=== PATIENT | female | born 1975 | race American Indian/Alaskan Native ===

== ENCOUNTER 2018-11-10 19:05 | Inpatient (IN) | payer MEDICAID ==
[2018-11-10] MEDS ORDERED: ZOFRAN IV ONE (20:22)
[2018-11-10] MEDS ORDERED: NACL 0.9% 1000 ML 1,000 ML IV ONE (20:22)
[2018-11-10] MEDS ORDERED: MORPHINE IV ONE (20:22)
--- NOTE | 2018-11-10 21:03 | Emergency Department Report ---
ED N/V/D HPI - General Chief complaint: Chest Pain Stated complaint: CHEST BURNING Time Seen by Provider: 11/10/18 20:06 Source: EMS Mode of arrival: Stretcher Limitations: No Limitations - History of Present Illness Initial comments: 43 yo F with no PMH presents to ED with N/V/D x 36 hrs. Pt denies any sick contacts. Reports subjective fever and chills. Reports diffuse abdominal pain. States she is having chest pain from vomiting so much. Pt states she was experiencing lots of gas prior to onset of symptoms. MD complaint: nausea, vomiting, diarrhea, abdominal pain -: hour(s) (36) Description of Vomiting: food contents Description of Diarrhea: water Associated Abdominal Pain: Yes Location: diffuse Radiation: none Severity: moderate Quality: cramping, aching Consistency: constant Improves with: none Worsens with: eating Associated Symptoms: chest pain, fever/chills, nausea/vomiting - Related Data Home Medications Medication Instructions Recorded Confirmed Last Taken No Known Home Medications [No 11/11/18 11/11/18 Unknown Reported Home Medications] Allergies Allergy/AdvReac Type Severity Reaction Status Date / Time No Known Allergies Allergy Unverified 11/10/18 19:45 ED Review of Systems ROS: Stated complaint: CHEST BURNING Other details as noted in HPI Comment: All other systems reviewed and negative Constitutional: chills, fever Cardiovascular: chest pain Gastrointestinal: abdominal pain, nausea, vomiting, diarrhea Genitourinary: denies: dysuria, frequency, discharge ED Past Medical Hx - Past Medical History Previous Medical History?: No - Surgical History Past Surgical History?: No - Social History Smoking Status: Current Every Day Smoker Substance Use Type: None - Medications Home Medications: Home Medications Medication Instructions Recorded Confirmed Last Taken Type No Known Home Medications [No 11/11/18 11/11/18 Unknown History Reported Home Medications] ED Physical Exam - General Limitations: No Limitations General appearance: alert, in no apparent distress - Head Head exam: Present: atraumatic, normocephalic - Eye Eye exam: Present: normal appearance - ENT ENT exam: Present: mucous membranes moist - Neck Neck exam: Present: normal inspection - Respiratory Respiratory exam: Present: normal lung sounds bilaterally. Absent: respiratory distress - Cardiovascular Cardiovascular Exam: Present: regular rate, normal rhythm - GI/Abdominal GI/Abdominal exam: Present: soft, tenderness (mild diffuse tenderness). Absent: distended - Extremities Exam Extremities exam: Present: normal inspection - Neurological Exam Neurological exam: Present: alert, oriented X3 - Psychiatric Psychiatric exam: Present: normal affect, normal mood - Skin Skin exam: Present: warm, dry, intact, normal color ED Course Vital Signs 11/10/18 11/10/18 11/10/18 19:31 22:44 22:56 Temperature 98 F Pulse Rate 64 68 65 Respiratory 22 16 Rate Blood Pressure 177/107 175/102 Blood Pressure 159/99 [Left] O2 Sat by Pulse 100 99 Oximetry 11/10/18 11/10/18 23:15 23:35 Temperature Pulse Rate 64 64 Respiratory 14 16 Rate Blood Pressure 165/102 Blood Pressure 165/102 145/94 [Left] O2 Sat by Pulse 98 97 Oximetry - Reevaluation(s) Reevaluation #1: 11/10/18 22:34 Troponin elevated. Pt reports chest pain that feels like gas. Reports drug use, heroin. Most recent use was today. Denies cocaine use. ED Medical Decision Making - Lab Data Result diagrams: 11/10/18 21:04 11/10/18 21:03 - EKG Data -: EKG Interpreted by Ma EKG shows normal: sinus rhythm, QRS complexes Rate: normal - EKG Data Interpretation: other (left axis deviation; prolonged QT; T wave inversions II, III, aVF, V2-V4) - Radiology Data Radiology results: report reviewed, image reviewed - Medical Decision Making 43 yo F presents to ED w/ chest pain, abd pain, N/V/D. Pt found to have elevated troponin at 0.126. EKG shows no ST elevations but does show diffuse T wave inversions. D-dimer negative. Pt admits to drug use, including heroin. Denies cocaine use. Pt with elevated WBCs of 15, however, pt is afebrile. CT Abd Pelvis shows no acute findings except for small amt of free fluid in the pelvis. Pt given aspirin, lovenox for NSTEMI. Admit to hospitalist, Dr Peguero, for further management. - Differential Diagnosis gastroenteritis, bowel obstruction, PE Critical Care Time: Yes Critical care time in (mins) excluding proc time.: 35 Critical care attestation.: If time is entered above; I have spent that time in minutes in the direct care of this critically ill patient, excluding procedure time. Critical Care Time: 35 minutes ED Disposition Clinical Impression: NSTEMI (non-ST elevated myocardial infarction), Abdominal pain, Drug abuse, Hypokalemia Disposition: DC-09 OP ADMIT IP TO THIS HOSP Is pt being admited?: Yes Condition: Stable Time of Disposition: 02:16
[2018-11-10 21:17] LABS: Basophils % (Auto) 0.2 % (0.0-1.8); Hemoglobin 16.5 gm/dl (10.1-14.3); Lymphocytes # (Auto) 0.9 K/mm3 (1.2-5.4); Lymphocytes % (Auto) 5.9 % (13.4-35.0); Mean Corpuscular HGB Conc 34 % (30-34); Mean Corpuscular Volume 92 fl (79-97); Monocytes # (Auto) 0.8 K/mm3 (0.0-0.8); Platelet Count 286 K/mm3 (140-440); Red Blood Count 5.31 M/mm3 (3.65-5.03); Red Cell Distribution Width 13.1 % (13.2-15.2)
[2018-11-10 21:42] LABS: Alanine Aminotransferase 16 units/L (7-56); Albumin 4.6 g/dL (3.9-5); BUN/Creatinine Ratio 14; Blood Urea Nitrogen 11 mg/dL (7-17); Calcium 9.6 mg/dL (8.4-10.2); Hemolysis Index 28
[2018-11-10 22:30] LABS: HDL Cholesterol 58 mg/dL (40-59); LDL Cholesterol,Direct 115 mg/dL (50-130)
[2018-11-10] MEDS ORDERED: ASPIRIN PO ONE (22:37)
[2018-11-10] MEDS: NITROSTAT SL PRN ×2 (22:56→23:15)
[2018-11-10 23:29] LABS: INR 1.16 (0.87-1.13)
[2018-11-10 23:30] LABS: Partial Thromboplastin Time 27.6 Sec. (24.2-36.6)
--- NOTE | 2018-11-10 23:42 | XRay Report ---
Acute abdominal series. 11/10/2018. HISTORY: Nausea and vomiting. Cough. Shortness of breath. Chest one view: Heart size is normal. The lungs are clear. Two-view abdomen: Gas is scattered throughout the abdomen in a nonobstructive fashion. Negative for f ree air, constipation or suspicious calcification. Signer Name: Suresh West MD Signed: 11/10/2018 11:37 PM Workstation Name: [id number]
[2018-11-11] MEDS ORDERED: LOVENOX SUB-Q ONE ×2 (00:51→23:41)
--- NOTE | 2018-11-11 01:47 | Cat Scan Report ---
CT abdomen pelvis w con INDICATION: abd pain. TECHNIQUE: All CT scans at this location are performed using the following dose modulation technique: Automated exposure control. CONTRAST: Omnipaque 300, 100 cc IV injection. COMPARISON: None available. CT ABDOMEN: Evaluation the parenchymal organs demonstrates diffuse fatty infiltration the liver. Nega tive for pelvic mass, fluid or inflammation. The bowel is not dilated or thickened. A normal appendix is identified. CT PELVIS: Negative for pelvic mass or adenopathy. The uterus and ovaries demonstrate no abnormality. There is fluid deep within the pelvis along the lateral aspect of the cervix on the right. IMPRESSION: 1. Fluid deep within the pelvis along the right lateral aspect of the cervix of uncertain significanc e. This may lie within the vagina. Clinical correlation is recommended. 2. Fatty liver. 3. Negative for abnormality at the upper abdomen. Signer Name: Suresh West MD Signed: 11/11/2018 1:43 AM Workstation Name: [id number]
[2018-11-11] MEDS ORDERED: MORPHINE IV ONE (02:06)
[2018-11-11] MEDS ORDERED: ZOFRAN IV ONE (02:06)
[2018-11-11] MEDS ORDERED: K-DUR PO ONE (02:14)
[2018-11-11] MEDS ORDERED: SODIUM CHLORIDE FLUSH SYRINGE 10 ML IV PRN (02:19)
[2018-11-11] MEDS ORDERED: TYLENOL PO PRN (02:19)
[2018-11-11] MEDS ORDERED: REGLAN IV PRN (02:19)
[2018-11-11] MEDS ORDERED: ATIVAN IV PRN (02:44)
[2018-11-11] MEDS ORDERED: APRESOLINE IV PRN (02:52)
--- NOTE | 2018-11-11 02:57 | History and Physical Report ---
<PAMELA ROPER - Last Filed: 11/11/18 02:53> History of Present Illness Date of examination: 11/11/18 Date of admission: 11/11/2018 Chief complaint: Nausea, vomiting, diarrhea, abdominal pain and chest pain History of present illness: 43-year-old -[place] female with history of heroin abuse and tobacco abuse presents to [facility] ED with complaints of nausea, vomiting, diarrhea, abdominal pain and chest pain for the past 2-3 days. Patient states that on Saturday she started feeling bloated and passing excessive amount of gas. On Saturday she started experiencing nonradiating left-sided substernal chest pain, abdominal pain accompanied by nausea vomiting and diarrhea. She states that she is unable to keep anything down since Saturday. Admits: Heroin abuse, and chills Denies: Hemoptysis, melena, hematochezia, headache, or recent sick contact Past History Past Medical History: No medical history, other Past Surgical History: No surgical history Social history: smoking (smokes 1-2 black n milds per day), other (heroine addiction,). denies: alcohol abuse Family history: no significant family history Medications and Allergies Allergies Allergy/AdvReac Type Severity Reaction Status Date / Time No Known Allergies Allergy Unverified 11/10/18 19:45 Home Medications Medication Instructions Recorded Confirmed Last Taken Type No Known Home Medications [No 11/11/18 11/11/18 Unknown History Reported Home Medications] Active Meds: Active Medications Acetaminophen (Tylenol) 650 mg PO Q4H PRN PRN Reason: Pain MILD(1-3)/Fever >100.5/[place] Aspirin (Baby Aspirin) 81 mg PO QDAY [facility] Atorvastatin Calcium (Lipitor) 40 mg PO QHS [facility] Enoxaparin Sodium (Lovenox) 60 mg 1 mg/kg (60 mg) SUB-Q ONCE ONE Stop: 11/11/18 23:42 Last Admin: 11/11/18 01:21 Dose: 60 mg Documented by: Enoxaparin Sodium (Lovenox) 60 mg 1 mg/kg (60 mg) SUB-Q Q12HR [facility] Sodium Chloride (Nacl 0.9% 1000 Ml) 1,000 mls @ 125 mls/hr IV DIRECT [facility] Lorazepam (Ativan) 1 mg IV Q6H PRN PRN Reason: withdrawal, agitation Metoclopramide HCl (Reglan) 10 mg IV Q6H PRN PRN Reason: Nausea And Vomiting Morphine Sulfate (Morphine) 2 mg IV Q4H PRN PRN Reason: Pain, Moderate (4-6) Nicotine (Habitrol) 14 mg TD QDAY [facility] Nitroglycerin (Nitrostat) 0.4 mg SL .Q5MIN PRN PRN Reason: Chest Pain Last Admin: 11/10/18 23:15 Dose: 0.4 mg Documented by: Ondansetron HCl (Zofran) 4 mg IV Q6H PRN PRN Reason: Nausea And Vomiting Oxycodone/Acetaminophen (Percocet 5/325) 1 tab PO Q6H PRN PRN Reason: Pain, Moderate (4-6) Sodium Chloride (Sodium Chloride Flush Syringe 10 Ml) 10 ml IV BID [facility] Sodium Chloride (Sodium Chloride Flush Syringe 10 Ml) 10 ml IV PRN PRN PRN Reason: LINE FLUSH Review of Systems All systems: negative Constitutional: chills, weakness Cardiovascular: chest pain Gastrointestinal: abdominal pain, nausea, vomiting, diarrhea Exam - Physical Exam Narrative exam: Physical exam General appearance: Present: Mild discomfort, alert and oriented 3, middle-age adult -[place] female - EENT Eyes: Present: PERRL, EOM intact ENT: hearing intact, normal dentition - Neck Neck: Present: supple, normal ROM - Respiratory Respiratory effort: Non-labored Respiratory: CTA bilaterally - Cardiovascular Heart rate: 67 (bpm) Rhythm: SR, nonspecific T-wave abnormality Heart Sounds: Present: S1 & S2. Absent: rub, click - Extremities Extremities: no ischemia, pulses intact, abnormal () - Peripheral Assessment Peripheral Pulses: within normal limits - Abdominal General gastrointestinal: soft, non-tender, normal bowel sounds - Integumentary Integumentary: Present: warm, dry - Musculoskeletal Musculoskeletal: generalized weakness -Neurological Neurological: CN II-XII grossly intact - Psychiatric Psychiatric: cooperative - Constitutional Vitals: Temp Pulse Resp BP Pulse Ox 98 F 64 16 145/94 97 11/10/18 19:31 11/10/18 23:35 11/10/18 23:35 11/10/18 23:35 11/10/18 23:35 Results - Labs CBC & Chem 7: 11/10/18 21:04 11/10/18 21:03 Labs: Laboratory Last Values WBC 15.5 K/mm3 (4.5-11.0) H 11/10/18 21:04 RBC 5.31 M/mm3 (3.65-5.03) H 11/10/18 21:04 Hgb 16.5 gm/dl (10.1-14.3) H 11/10/18 21:04 Hct 49.0 % (30.3-42.9) H 11/10/18 21:04 MCV 92 fl (79-97) 11/10/18 21:04 MCH 31 pg (28-32) 11/10/18 21:04 MCHC 34 % (30-34) 11/10/18 21:04 RDW 13.1 % (13.2-15.2) L 11/10/18 21:04 Plt Count 286 K/mm3 (140-440) 11/10/18 21:04 Lymph % (Auto) 5.9 % (13.4-35.0) L 11/10/18 21:04 [place] % (Auto) 5.0 % (0.0-7.3) 11/10/18 21:04 Eos % (Auto) 0.0 % (0.0-4.3) 11/10/18 21:04 Baso % (Auto) 0.2 % (0.0-1.8) 11/10/18 21:04 Lymph # 0.9 K/mm3 (1.2-5.4) L 11/10/18 21:04 [place] # 0.8 K/mm3 (0.0-0.8) 11/10/18 21:04 Eos # 0.0 K/mm3 (0.0-0.4) 11/10/18 21:04 Baso # 0.0 K/mm3 (0.0-0.1) 11/10/18 21:04 Seg Neutrophils % 88.9 % (40.0-70.0) H 11/10/18 21:04 Seg Neutrophils # 13.8 K/mm3 (1.8-7.7) H 11/10/18 21:04 PT 14.5 Sec. (12.2-14.9) 11/10/18 22:46 INR 1.16 (0.87-1.13) H 11/10/18 22:46 APTT 27.6 Sec. (24.2-36.6) 11/10/18 22:46 184.44 ng/mlDDU (0-234) 11/10/18 22:46 Sodium 140 mmol/L (137-145) 11/10/18 21:03 Potassium 3.4 mmol/L (3.6-5.0) L 11/10/18 21:03 Chloride 97.6 mmol/L (98-107) L 11/10/18 21:03 Carbon Dioxide 24 mmol/L (22-30) 11/10/18 21:03 22 mmol/L 11/10/18 21:03 BUN 11 mg/dL (7-17) 11/10/18 21:03 0.8 mg/dL (0.7-1.2) 11/10/18 21:03 Estimated GFR > 60 ml/min 11/10/18 21:03 14 % 11/10/18 21:03 Glucose 97 mg/dL (65-100) 11/10/18 21:03 Calcium 9.6 mg/dL (8.4-10.2) 11/10/18 21:03 1.00 mg/dL (0.1-1.2) 11/10/18 21:03 AST 28 units/L (5-40) 11/10/18 21:03 ALT 16 units/L (7-56) 11/10/18 21:03 77 units/L (35-129) 11/10/18 21:03 0.126 ng/mL (0.00-0.029) H* 11/10/18 21:03 8.6 g/dL (6.3-8.2) H 11/10/18 21:03 4.6 g/dL (3.9-5) 11/10/18 21:03 1.2 % 11/10/18 21:03 Triglycerides 98 mg/dL (2-149) 11/10/18 21:03 Cholesterol 174 mg/dL (50-199) 11/10/18 21:03 115 mg/dL (50-130) 11/10/18 21:03 58 mg/dL (40-59) 11/10/18 21:03 3.00 % 11/10/18 21:03 11 units/L (13-60) L 11/10/18 21:03 HCG, Qual Negative (Negative) 11/10/18 20:55 - Imaging and Cardiology EKG: image reviewed (SR 67bpm, non specific T wave abnormalities) Imaging and Cardiology: Abdominal Serier XR: Two-view abdomen: Gas is scattered throughout the abdomen in a nonobstructive fashion. Negative forfree air, constipation or suspicious calcification. CT Abdomen Pelvis: CT ABDOMEN: Evaluation the parenchymal organs demonstrates diffuse fatty infiltration the liver. Negative for pelvic mass, fluid or inflammation. The bowel is not dilated or thickened. A normal appendix is identified. CT PELVIS: Negative for pelvic mass or adenopathy. The uterus and ovaries demonstrate no abnormality. There is fluid deep within the pelvis along the lateral aspect of the cervix on the right. IMPRESSION: 1. Fluid deep within the pelvis along the right lateral aspect of the cervix of uncertain significance. This may lie within the vagina. Clinical correlation is recommended. 2. Fatty liver. 3. Negative for abnormality at the upper abdomen. Assessment and Plan Assessment and plan: 43-year-old -[place] female with history of heroin abuse and tobacco abuse who presents to [facility] ED with complaints of nausea, vomiting, diarrhea, abdominal pain and chest pain for the past 2-3 days. Acute Chest Pain NSTEMI -Initiate chest pain protocol -Continuous telemetry monitoring -Continue supportive care -Pain mgmt -Echo pending -Troponin elevated x 1, will continue to trend -Start ASA and Statin -Start weight based Lovenox -Lipid panel pending -Cardiology Consulted Gastroenteritis -Supportive Care -Hydrate with IVF -CT Abd/Pelvis negative for abnormality at the upper abdomen Hypertension -Continue to monitor BP -Denies hx of HTN -IV antihypertensive when necessary Hypokalemia -mild -Repleted -Continue to monitor electrolytes, replete prn Tobacco abuse -Current every day smoker -Counseled for cessation -Nicotine patch when necessary Heroin abuse -Pt self reports -UDS pending -Ativan prn for withdrawals Leukocytosis -WBC 15.5 -Afebrile, no s/s of infection -hold off on starting abx for now and continue to monitor DVT PPX -on Lovenox Advance Directives: No VTE prophylaxis?: Chemical Plan of care discussed with patient/family: Yes <DAWN LIGHT - Last Filed: 11/11/18 05:09> History of Present Illness Date of admission: 11/11/18 02:19 Medications and Allergies Active Meds: Active Medications Acetaminophen (Tylenol) 650 mg PO Q4H PRN PRN Reason: Pain MILD(1-3)/Fever >100.5/[place] Aspirin (Baby Aspirin) 81 mg PO QDAY [facility] Atorvastatin Calcium (Lipitor) 40 mg PO QHS [facility] Enoxaparin Sodium (Lovenox) 60 mg SUB-Q Q12HR [facility] Hydralazine HCl (Apresoline) 10 mg IV Q4H PRN PRN Reason: Blood Pressure Sodium Chloride (Nacl 0.9% 1000 Ml) 1,000 mls @ 125 mls/hr IV DIRECT [facility] Lorazepam (Ativan) 0.5 mg IV Q6H PRN PRN Reason: withdrawal, agitation Last Admin: 11/11/18 03:25 Dose: 0.5 mg Documented by: Metoclopramide HCl (Reglan) 10 mg IV Q6H PRN PRN Reason: Nausea And Vomiting Morphine Sulfate (Morphine) 2 mg IV Q4H PRN PRN Reason: Pain, Moderate (4-6) Nicotine (Habitrol) 14 mg TD QDAY [facility] Nitroglycerin (Nitrostat) 0.4 mg SL .Q5MIN PRN PRN Reason: Chest Pain Last Admin: 11/10/18 23:15 Dose: 0.4 mg Documented by: Ondansetron HCl (Zofran) 4 mg IV Q6H PRN PRN Reason: Nausea And Vomiting Oxycodone/Acetaminophen (Percocet 5/325) 1 tab PO Q6H PRN PRN Reason: Pain, Moderate (4-6) Sodium Chloride (Sodium Chloride Flush Syringe 10 Ml) 10 ml IV BID [facility] Sodium Chloride (Sodium Chloride Flush Syringe 10 Ml) 10 ml IV PRN PRN PRN Reason: LINE FLUSH Exam - Constitutional Vitals: Temp Pulse Resp BP Pulse Ox 98 F 64 16 145/94 97 11/10/18 19:31 11/10/18 23:35 11/10/18 23:35 11/10/18 23:35 11/10/18 23:35 Results - Labs CBC & Chem 7: 11/10/18 21:04 11/10/18 21:03 Labs: Laboratory Last Values WBC 15.5 K/mm3 (4.5-11.0) H 11/10/18 21:04 RBC 5.31 M/mm3 (3.65-5.03) H 11/10/18 21:04 Hgb 16.5 gm/dl (10.1-14.3) H 11/10/18 21:04 Hct 49.0 % (30.3-42.9) H 11/10/18 21:04 MCV 92 fl (79-97) 11/10/18 21:04 MCH 31 pg (28-32) 11/10/18 21:04 MCHC 34 % (30-34) 11/10/18 21:04 RDW 13.1 % (13.2-15.2) L 11/10/18 21:04 Plt Count 286 K/mm3 (140-440) 11/10/18 21:04 Lymph % (Auto) 5.9 % (13.4-35.0) L 11/10/18 21:04 [place] % (Auto) 5.0 % (0.0-7.3) 11/10/18 21:04 Eos % (Auto) 0.0 % (0.0-4.3) 11/10/18 21:04 Baso % (Auto) 0.2 % (0.0-1.8) 11/10/18 21:04 Lymph # 0.9 K/mm3 (1.2-5.4) L 11/10/18 21:04 [place] # 0.8 K/mm3 (0.0-0.8) 11/10/18 21:04 Eos # 0.0 K/mm3 (0.0-0.4) 11/10/18 21:04 Baso # 0.0 K/mm3 (0.0-0.1) 11/10/18 21:04 Seg Neutrophils % 88.9 % (40.0-70.0) H 11/10/18 21:04 Seg Neutrophils # 13.8 K/mm3 (1.8-7.7) H 11/10/18 21:04 PT 14.5 Sec. (12.2-14.9) 11/10/18 22:46 INR 1.16 (0.87-1.13) H 11/10/18 22:46 APTT 27.6 Sec. (24.2-36.6) 11/10/18 22:46 184.44 ng/mlDDU (0-234) 11/10/18 22:46 Sodium 140 mmol/L (137-145) 11/10/18 21:03 Potassium 3.4 mmol/L (3.6-5.0) L 11/10/18 21:03 Chloride 97.6 mmol/L (98-107) L 11/10/18 21:03 Carbon Dioxide 24 mmol/L (22-30) 11/10/18 21:03 22 mmol/L 11/10/18 21:03 BUN 11 mg/dL (7-17) 11/10/18 21:03 0.8 mg/dL (0.7-1.2) 11/10/18 21:03 Estimated GFR > 60 ml/min 11/10/18 21:03 14 % 11/10/18 21:03 Glucose 97 mg/dL (65-100) 11/10/18 21:03 Calcium 9.6 mg/dL (8.4-10.2) 11/10/18 21:03 1.00 mg/dL (0.1-1.2) 11/10/18 21:03 AST 28 units/L (5-40) 11/10/18 21:03 ALT 16 units/L (7-56) 11/10/18 21:03 77 units/L (35-129) 11/10/18 21:03 0.126 ng/mL (0.00-0.029) H* 11/10/18 21:03 8.6 g/dL (6.3-8.2) H 11/10/18 21:03 4.6 g/dL (3.9-5) 11/10/18 21:03 1.2 % 11/10/18 21:03 Triglycerides 98 mg/dL (2-149) 11/10/18 21:03 Cholesterol 174 mg/dL (50-199) 11/10/18 21:03 115 mg/dL (50-130) 11/10/18 21:03 58 mg/dL (40-59) 11/10/18 21:03 3.00 % 11/10/18 21:03 11 units/L (13-60) L 11/10/18 21:03 HCG, Qual Negative (Negative) 11/10/18 20:55 Assessment and Plan Assessment and plan: 43-year-old woman with a history of recurrent abuse comes emergency room for nausea vomiting for 36 hours. Also complaining of chest and epigastric area which she describes as a dull pain, lasting less than 1 minute intermittently, intensity 4/10, no radiation, admits shortness of breath. start aspirin, full dose Lovenox, cardiology consult. No sign or symptoms of infection, check blood cultures. agree w/ rest of plan as stated above
[2018-11-11] MEDS: ATIVAN IV PRN (03:25)
[2018-11-11] MEDS: PERCOCET 5/325 PO PRN (09:47)
[2018-11-11] MEDS: ZOFRAN IV PRN ×2 (09:48→20:47)
[2018-11-11] MEDS: SODIUM CHLORIDE FLUSH SYRINGE 10 ML IV SCH ×2 (09:50→21:00)
[2018-11-11] MEDS ORDERED: LOVENOX SUB-Q SCH (10:00)
--- NOTE | 2018-11-11 11:25 | Consultation ---
History of Present Illness Consult date: 11/11/18 Requesting physician: PAMELA ROPER Consult reason: elevated troponin History of present illness: The pt is a 43-year-old female with history of heroin abuse (via nasal inhalation) and tobacco abuse. She is previously unknown to our practice. She presented with c/o nausea, vomiting, abdominal pain and chest pain. Patient states that on Saturday morning she used heroin. Several hours later, she began to experience gaseous distention, epigastric fullness and substernal chest pain. On Saturday morning, she developed nausea and vomiting. These symptoms persisted through the weekend and thus she presented to the ED yesterday evening for evaluation. Past History Past Medical History: No medical history Past Surgical History: No surgical history Social history: smoking (smokes 1-2 cigars per day), other (heroine inhalation ). denies: alcohol abuse Medications and Allergies Allergies Allergy/AdvReac Type Severity Reaction Status Date / Time No Known Allergies Allergy Unverified 11/10/18 19:45 Home Medications Medication Instructions Recorded Confirmed Last Taken Type No Known Home Medications [No 11/11/18 11/11/18 Unknown History Reported Home Medications] Active Meds: Active Medications Acetaminophen (Tylenol) 650 mg PO Q4H PRN PRN Reason: Pain MILD(1-3)/Fever >100.5/LARSON Aspirin (Baby Aspirin) 81 mg PO QDAY MARILEE Atorvastatin Calcium (Lipitor) 40 mg PO QHS MARILEE Enoxaparin Sodium (Lovenox) 60 mg SUB-Q Q12HR MARILEE Hydralazine HCl (Apresoline) 10 mg IV Q4H PRN PRN Reason: Blood Pressure Sodium Chloride (Nacl 0.9% 1000 Ml) 1,000 mls @ 125 mls/hr IV DIRECT MARILEE Lorazepam (Ativan) 0.5 mg IV Q6H PRN PRN Reason: withdrawal, agitation Last Admin: 11/11/18 03:25 Dose: 0.5 mg Documented by: Metoclopramide HCl (Reglan) 10 mg IV Q6H PRN PRN Reason: Nausea And Vomiting Morphine Sulfate (Morphine) 2 mg IV Q4H PRN PRN Reason: Pain, Moderate (4-6) Nicotine (Habitrol) 14 mg TD QDAY MARILEE Nitroglycerin (Nitrostat) 0.4 mg SL .Q5MIN PRN PRN Reason: Chest Pain Last Admin: 11/10/18 23:15 Dose: 0.4 mg Documented by: Ondansetron HCl (Zofran) 4 mg IV Q6H PRN PRN Reason: Nausea And Vomiting Last Admin: 11/11/18 09:48 Dose: 4 mg Documented by: Oxycodone/Acetaminophen (Percocet 5/325) 1 tab PO Q6H PRN PRN Reason: Pain, Moderate (4-6) Last Admin: 11/11/18 09:47 Dose: 1 tab Documented by: Sodium Chloride (Sodium Chloride Flush Syringe 10 Ml) 10 ml IV BID MARILEE Last Admin: 11/11/18 09:50 Dose: 10 ml Documented by: Sodium Chloride (Sodium Chloride Flush Syringe 10 Ml) 10 ml IV PRN PRN PRN Reason: LINE FLUSH Review of Systems Constitutional: no weight loss, no weight gain, no fever, no chills, no sweats Ears, nose, mouth and throat: no ear pain, no nose pain, no sinus pressure, no sinus pain Cardiovascular: chest pain, no orthopnea, no palpitations, no rapid/irregular heart beat, no edema, no syncope, no lightheadedness, no shortness of breath, no dyspnea on exertion, no high blood pressure Respiratory: no cough, no shortness of breath, no dyspnea on exertion, no congestion, no wheezing, no pain on inspiration Gastrointestinal: abdominal pain, nausea, vomiting, indigestion, no hematemesis, no coffee ground emesis, no melena, no hematochezia Genitourinary Female: no pelvic pain, no flank pain, no dysuria, no urinary frequency, no urgency Musculoskeletal: no neck stiffness, no neck pain, no shooting arm pain, no arm numbness/tingling, no low back pain, no shooting leg pain Integumentary: no rash, no pruritis, no redness, no sores, no wounds Neurological: no head injury, no paralysis, no weakness, no parathesias, no numbness, no tingling, no seizures, no syncope Psychiatric: no anxiety Endocrine: no cold intolerance, no heat intolerance Hematologic/Lymphatic: no easy bruising, no easy bleeding Allergic/Immunologic: no urticaria, no wheezing Physical Examination Vital Signs Temp Pulse Resp BP Pulse Ox 98 F 64 22 177/107 100 11/10/18 19:31 11/10/18 19:31 11/10/18 19:31 11/10/18 19:31 11/10/18 19:31 General appearance: no acute distress HEENT: Positive: PERRL, Normocephaly, Mucus Membranes Moist Neck: Positive: neck supple, trachea midline Cardiac: Positive: Reg Rate and Rhythm, S1/S2 Lungs: Positive: Decreased Breath Sounds Neuro: Positive: Grossly Intact Abdomen: Positive: Tender (epigastric tenderness) Skin: Negative: Rash Musculoskeletal: No Pain Extremities: Absent: edema Results 11/10/18 21:04 11/10/18 21:03 Cardiac Enzymes 11/10/18 Range/Units 21:03 AST 28 (5-40) units/L Coagulation 11/10/18 Range/Units 22:46 PT 14.5 (12.2-14.9) Sec. INR 1.16 H (0.87-1.13) APTT 27.6 (24.2-36.6) Sec. Lipids 11/10/18 Range/Units 21:03 Triglycerides 98 (2-149) mg/dL Cholesterol 174 (50-199) mg/dL HDL Cholesterol 58 (40-59) mg/dL Cholesterol/HDL Ratio 3.00 % CBC 11/10/18 Range/Units 21:04 WBC 15.5 H (4.5-11.0) K/mm3 RBC 5.31 H (3.65-5.03) M/mm3 Hgb 16.5 H (10.1-14.3) gm/dl Hct 49.0 H (30.3-42.9) % Plt Count 286 (140-440) K/mm3 Lymph # 0.9 L (1.2-5.4) K/mm3 [place] # 0.8 (0.0-0.8) K/mm3 Eos # 0.0 (0.0-0.4) K/mm3 Baso # 0.0 (0.0-0.1) K/mm3 Comprehensive Metabolic Panel 11/10/18 Range/Units 21:03 Sodium 140 (137-145) mmol/L Potassium 3.4 L (3.6-5.0) mmol/L Chloride 97.6 L (98-107) mmol/L Carbon Dioxide 24 (22-30) mmol/L BUN 11 (7-17) mg/dL Creatinine 0.8 (0.7-1.2) mg/dL Glucose 97 (65-100) mg/dL Calcium 9.6 (8.4-10.2) mg/dL AST 28 (5-40) units/L ALT 16 (7-56) units/L Alkaline Phosphatase 77 (35-129) units/L Total Protein 8.6 H (6.3-8.2) g/dL Albumin 4.6 (3.9-5) g/dL - Imaging and Cardiology Echo: pending EKG: report reviewed, image reviewed EKG interpretations - Telemetry EKG Rhythm: Sinus Rhythm - EKG Sinus rhythms and dysrhythmias: sinus rhythm Repolarization changes or abnormalities: ST or T wave suggestive of ischemia Assessment and Plan Pt presented with c/o chest pain, abdominal pain, n/v and is noted to have elevated troponins and markedly abnormal ECG. Her presentation appears c/w NSTEMI type I. Coronary angiography recommended for definitive diagnosis. Indications, potential risks and benefits of LHC reviewed with pt and she is agreeable to proceed in AM. NPO after MN. Optimize anti-ischemic regimen and BPs. Cont serial ECGs and trend cardiac enzymes. Await echo. Further recs to follow per hospital course. The patient has been seen in conjunction with Dr. Meneses who agrees with the assessment and plan of care. - Patient Problems (1) NSTEMI (non-ST elevated myocardial infarction) Current Visit: Yes Status: Acute (2) Chest pain Current Visit: Yes Status: Acute (3) Epigastric pain Current Visit: Yes Status: Acute (4) Nausea & vomiting Current Visit: Yes Status: Acute (5) Heroin abuse Current Visit: Yes Status: Chronic (6) Tobacco use Current Visit: Yes Status: Chronic (7) Hypokalemia Current Visit: Yes Status: Acute (8) HTN (hypertension) Current Visit: Yes Status: Acute
[2018-11-11] MEDS: HABITROL TD SCH (11:48)
[2018-11-11] MEDS: LOVENOX SUB-Q SCH ×2 (11:48→21:00)
[2018-11-11] MEDS: MORPHINE IV PRN ×3 (11:59→20:47)
[2018-11-11] MEDS ORDERED: NORVASC PO SCH (12:00)
[2018-11-11] MEDS ORDERED: NACL 0.9% 500 ML 500 ML IV SCH (12:00)
[2018-11-11] MEDS: LOPRESSOR PO SCH ×2 (13:40→21:00)
--- NOTE | 2018-11-11 13:56 | Progress Note ---
Assessment and Plan Assessment and plan: Patient is 43-year-old -[place]i woman with a history of heroin abuse (nasal inhalation) and tobacco abuse who presents to [facility] ED with complaints of nausea, vomiting, diarrhea, abdominal pain and chest pain for the past 2-3 days. Acute Chest Pain and abnormal EKG c/w NSTEMI -Initiate chest pain protocol -Continuous telemetry monitoring -Continue supportive care -Pain mgmt -Echo pending -Troponin elevated x 1, will continue to trend -Start ASA and Statin -Start weight based Lovenox -Lipid panel pending -Cardiology Consulted, input noted, [facility] tomorrow Gastroenteritis -Supportive Care -Hydrate with IVF -CT Abd/Pelvis negative for abnormality at the upper abdomen Hypertension -Continue to monitor BP -Denies hx of HTN -IV antihypertensive when necessary Hypokalemia -mild -Repleted -Continue to monitor electrolytes, replete prn Tobacco abuse -Current every day smoker -Counseled for cessation -Nicotine patch when necessary Heroin abuse -Pt self reports -UDS pending, uncollected, d/w Nursing -Ativan prn for withdrawals Leukocytosis -WBC 15.5 -Afebrile, no s/s of infection -hold off on starting abx for now and continue to monitor DVT PPX -on Lovenox History Interval history: Patient was seen and examined. Follow-up on current diagnosis AMI. No overnight events reported to me. Patient denies nausea/vomiting or severe headaches. Imaging, nursing note, chart, labs and old chart reviewed. Discussed with patient. Hospitalist Physical - Physical exam Narrative exam: Gen: WDWN, NAD, Awake, Alert, Orientated HEENT: NCAT, EOMI, PERRL, OP Clear Neck: supple, no adenopathy, no thyromegaly, no JVD CVS/Heart: RRR, normal S1S2, pulses present bilaterally Chest/Lungs: CTA B, Symmetrical chest expansion, good air entry bilaterally GI/Abdomen: soft, NTND, good bowel sounds, no guarding or rebound /Bladder: no suprapubic tenderness, no CVA or paraspinal tenderness Extermity/Skin: no c/c/e, no obvious rash MSK: FROM x 4 Neuro: CN 2-12 grossly intact, no new focal deficits Psych: calm - Constitutional Vitals: Temp Pulse Resp BP Pulse Ox 97.7 F 71 14 144/82 97 08/27/19 12:20 11/11/18 13:40 11/11/18 12:20 11/11/18 13:40 11/11/18 12:20 General appearance: Present: no acute distress Results - Labs CBC & Chem 7: 11/10/18 21:04 11/10/18 21:03 Labs: Laboratory Last Values WBC 15.5 K/mm3 (4.5-11.0) H 11/10/18 21:04 RBC 5.31 M/mm3 (3.65-5.03) H 11/10/18 21:04 Hgb 16.5 gm/dl (10.1-14.3) H 11/10/18 21:04 Hct 49.0 % (30.3-42.9) H 11/10/18 21:04 MCV 92 fl (79-97) 11/10/18 21:04 MCH 31 pg (28-32) 11/10/18 21:04 MCHC 34 % (30-34) 11/10/18 21:04 RDW 13.1 % (13.2-15.2) L 11/10/18 21:04 Plt Count 286 K/mm3 (140-440) 11/10/18 21:04 Lymph % (Auto) 5.9 % (13.4-35.0) L 11/10/18 21:04 [place] % (Auto) 5.0 % (0.0-7.3) 11/10/18 21:04 Eos % (Auto) 0.0 % (0.0-4.3) 11/10/18 21:04 Baso % (Auto) 0.2 % (0.0-1.8) 11/10/18 21:04 Lymph # 0.9 K/mm3 (1.2-5.4) L 11/10/18 21:04 [place] # 0.8 K/mm3 (0.0-0.8) 11/10/18 21:04 Eos # 0.0 K/mm3 (0.0-0.4) 11/10/18 21:04 Baso # 0.0 K/mm3 (0.0-0.1) 11/10/18 21:04 Seg Neutrophils % 88.9 % (40.0-70.0) H 11/10/18 21:04 Seg Neutrophils # 13.8 K/mm3 (1.8-7.7) H 11/10/18 21:04 PT 14.5 Sec. (12.2-14.9) 11/10/18 22:46 INR 1.16 (0.87-1.13) H 11/10/18 22:46 APTT 27.6 Sec. (24.2-36.6) 11/10/18 22:46 184.44 ng/mlDDU (0-234) 11/10/18 22:46 Sodium 140 mmol/L (137-145) 11/10/18 21:03 Potassium 3.4 mmol/L (3.6-5.0) L 11/10/18 21:03 Chloride 97.6 mmol/L (98-107) L 11/10/18 21:03 Carbon Dioxide 24 mmol/L (22-30) 11/10/18 21:03 22 mmol/L 11/10/18 21:03 BUN 11 mg/dL (7-17) 11/10/18 21:03 0.8 mg/dL (0.7-1.2) 11/10/18 21:03 Estimated GFR > 60 ml/min 11/10/18 21:03 14 % 11/10/18 21:03 Glucose 97 mg/dL (65-100) 11/10/18 21:03 Calcium 9.6 mg/dL (8.4-10.2) 11/10/18 21:03 1.00 mg/dL (0.1-1.2) 11/10/18 21:03 AST 28 units/L (5-40) 11/10/18 21:03 ALT 16 units/L (7-56) 11/10/18 21:03 77 units/L (35-129) 11/10/18 21:03 0.075 ng/mL (0.00-0.029) H 11/11/18 08:38 8.6 g/dL (6.3-8.2) H 11/10/18 21:03 4.6 g/dL (3.9-5) 11/10/18 21:03 1.2 % 11/10/18 21:03 Triglycerides 98 mg/dL (2-149) 11/10/18 21:03 Cholesterol 174 mg/dL (50-199) 11/10/18 21:03 115 mg/dL (50-130) 11/10/18 21:03 58 mg/dL (40-59) 11/10/18 21:03 3.00 % 11/10/18 21:03 11 units/L (13-60) L 11/10/18 21:03 HCG, Qual Negative (Negative) 11/10/18 20:55 Active Medications - Current Medications Current Medications: Generic Name Dose Route Start Last Admin Trade Name Freq PRN Reason Stop Dose Admin Acetaminophen 650 mg 11/11/18 02:19 Tylenol PO Q4H PRN Pain MILD(1-3)/Fever >100.5/LARSON Aspirin 325 mg 11/12/18 10:00 Aspirin PO QDAY [facility] Atorvastatin Calcium 40 mg 11/11/18 22:00 Lipitor PO QHS MARILEE Enoxaparin Sodium 60 mg 11/11/18 10:00 11/11/18 11:48 Lovenox SUB-Q 11/12/18 01:00 60 mg Q12HR MARILEE Administration Sodium Chloride 1,000 mls @ 125 mls/hr 11/11/18 03:00 Nacl 0.9% 1000 Ml IV DIRECT MARILEE Sodium Chloride 500 mls @ 50 mls/hr 11/11/18 12:00 Nacl 0.9% 500 Ml IV 11/11/18 21:59 DIRECT MARILEE Lorazepam 0.5 mg 11/11/18 02:58 11/11/18 03:25 Ativan IV 0.5 mg Q6H PRN Administration withdrawal, agitation Metoclopramide HCl 10 mg 11/11/18 02:19 11/11/18 12:36 Reglan IV 10 mg Q6H PRN Administration Nausea And Vomiting Metoprolol Tartrate 50 mg 11/11/18 12:00 11/11/18 13:40 Lopressor PO 50 mg BID MARILEE Administration Morphine Sulfate 2 mg 11/11/18 02:19 11/11/18 11:59 Morphine IV 2 mg Q4H PRN Administration Pain, Moderate (4-6) Nicotine 14 mg 11/11/18 10:00 11/11/18 11:48 Habitrol TD 14 mg QDAY MARILEE Administration Nitroglycerin 0.4 mg 11/10/18 22:39 11/10/18 23:15 Nitrostat SL 0.4 mg .Q5MIN PRN Administration Chest Pain Ondansetron HCl 4 mg 11/11/18 02:19 11/11/18 09:48 Zofran IV 4 mg Q6H PRN Administration Nausea And Vomiting Oxycodone/Acetaminophen 1 tab 11/11/18 02:19 11/11/18 09:47 Percocet 5/325 PO 1 tab Q6H PRN Administration Pain, Moderate (4-6) Sodium Chloride 10 ml 11/11/18 10:00 11/11/18 09:50 Sodium Chloride Flush Syringe 10 Ml IV 10 ml BID MARILEE Administration Sodium Chloride 10 ml 11/11/18 02:19 Sodium Chloride Flush Syringe 10 Ml IV PRN PRN LINE FLUSH
[2018-11-11] MEDS: NACL 0.9% 1000 ML 1,000 ML IV SCH (14:59)
[2018-11-11 19:41] LABS: Bilirubin,Urine NEG (Negative); Blood,Urine NEG (Negative); Color,Urine Yellow (Yellow); Mucus,Urine 1+ /HPF
[2018-11-11 19:47] LABS: Amphetamine Screen,Urine PRESUMPTIVE NEGATIVE; Cannabinoid Screen,Urine PRESUMPTIVE NEGATIVE; Methadone Screen,Urine PRESUMPTIVE NEGATIVE
[2018-11-11 20:01] LABS: Benzodiazepines Screen,Urine PRESUMPTIVE POSITIVE; Cocaine Screen,Urine PRESUMPTIVE POSITIVE; Opiate Screen,Urine PRESUMPTIVE POSITIVE
[2018-11-12] MEDS: MORPHINE IV PRN ×3 (00:13→16:32)
[2018-11-12] MEDS ORDERED: BENADRYL PO PRN (00:54)
[2018-11-12] MEDS ORDERED: BENADRYL IV ONE (01:03)
[2018-11-12] MEDS: ATIVAN IV PRN (02:04)
[2018-11-12 06:27] LABS: Basophils % (Auto) 0.2 % (0.0-1.8); Hematocrit 47.8 % (30.3-42.9); Hemoglobin 16.2 gm/dl (10.1-14.3); Lymphocytes # (Auto) 2.6 K/mm3 (1.2-5.4); Lymphocytes % (Auto) 14.9 % (13.4-35.0); Mean Corpuscular HGB Conc 34 % (30-34); Mean Corpuscular Volume 91 fl (79-97); Monocytes # (Auto) 1.3 K/mm3 (0.0-0.8); Monocytes % (Auto) 7.1 % (0.0-7.3); Platelet Count 284 K/mm3 (140-440); Red Blood Count 5.24 M/mm3 (3.65-5.03)
[2018-11-12 06:34] LABS: INR 1.2 (0.87-1.13)
[2018-11-12 06:40] LABS: Creatine Kinase MB 2.5 ng/mL (0.0-4.0)
[2018-11-12 06:41] LABS: BUN/Creatinine Ratio 18; Blood Urea Nitrogen 14 mg/dL (7-17); Calcium 8.9 mg/dL (8.4-10.2); Hemolysis Index 5
[2018-11-12] MEDS: NACL 0.9% 1000 ML 1,000 ML IV SCH (07:05)
[2018-11-12] MEDS ORDERED: NACL 0.9% 500 ML 500 ML ONE (07:59)
[2018-11-12] MEDS ORDERED: ZOFRAN ONE ×2 (08:00→08:37)
[2018-11-12] MEDS: ZOFRAN IV PRN ×2 (08:04→16:39)
[2018-11-12] MEDS ORDERED: MORPHINE ONE (08:16)
[2018-11-12] MEDS ORDERED: HEPARIN 10,000 UNITS/10 ML ONE (08:25)
[2018-11-12] MEDS ORDERED: HEPARIN/NS 5000 UNIT/500ML(CATH LAB) 1,000 ML IR ONE (08:25)
[2018-11-12] MEDS ORDERED: CALAN ONE (08:26)
[2018-11-12] MEDS ORDERED: VERSED ONE (08:26)
[2018-11-12] MEDS ORDERED: NITROGLYCERIN SYRINGE 3 ML ONE (08:27)
[2018-11-12] MEDS ORDERED: XYLOCAINE 2% INFILTRATI ONE (08:27)
[2018-11-12] MEDS: SUBLIMAZE ONE ×2 (08:49→09:09)
[2018-11-12] MEDS ORDERED: ZOFRAN IV ONE (09:00)
[2018-11-12] MEDS ORDERED: K-DUR PO ONE ×2 (09:16→09:19)
--- NOTE | 2018-11-12 09:27 | Cardiac Catherization Report ---
LEFT HEART CATHETERIZATION CLINICAL INFORMATION: This is a 43-year-old -[place] female with history of heroin use, smoker, presents with chest pain, shortness of breath, was found to have abnormal troponin suggested [id number] CO with moderate LV dysfunction, EF 35-40%, here for left heart catheterization. Left heart catheterization was done under moderate sedation, 1 mg Versed, 50 mcg of fentanyl. Start sedation time 8:49 a.m., finished at 9:14 a.m., which is 25 minutes of supervised sedation. Procedure was performed by the right radial artery, sterile technique, local anesthesia, 6-Anguillan radial sheath inserted. Left system engaged with JL3.5 catheter. Left main is large and patent, bifurcates into large LAD that is patent. Diagonal 1 is a [id number] caliber vessel, patent. Circumflex is a large caliber vessel, which is patent, goes into large OM1 with upper and lower branches patent. RCA engaged with JR4 catheter, is a large dominant vessel, is patent. PDA and PLV are agoyu-fq-iaoevi caliber and patent. LV gram done in TONGAN and HARVEY shows mild to moderate LV dysfunction, EF 40%. LVEDP at 26 mmHg. LV was 168 mmHg. Aortic is 167/108 mmHg. No significant gradient across the aortic valve on pullback. A 5-Anguillan catheters all taken over guidewire, 6-Anguillan radial sheath was discontinued. Radial band applied. No hematoma, no bleeding. SUMMARY: Normal coronaries, left main, LAD, diagonal 1, circumflex OM1 and RCA, mild to moderate LV dysfunction with elevated left end-diastolic pressure, nonischemic cardiomyopathy. Treat medically. JOB# [id number] LEXY/ZAINAB
--- NOTE | 2018-11-12 09:27 | Progress Note ---
Assessment and Plan nstemi type 2 non ischemic cardiomyopathy acute systolic and diasatolic dsyfunction nausea and vomiting smoker history of recent heorin use htn hypokalemia rec: start clear liquids, replace k and check am labs, lopressor and add losartan for lv dsyfunction and possible discharge in am and post cath care Subjective Date of service: 11/12/18 Principal diagnosis: nstemi Interval history: nausea and chest pain better Objective Vital Signs Temp Pulse Resp BP BP Pulse Ox 11/12/18 06:00 60 11/12/18 03:54 98.9 F 64 16 158/108 98 11/12/18 00:51 63 11/11/18 23:44 99.2 F 63 16 159/108 98 11/11/18 23:05 65 11/11/18 21:00 171/108 11/11/18 20:19 98.8 F 63 18 171/108 98 11/11/18 18:44 61 18 158/95 96 11/11/18 15:55 99.7 F H 60 14 149/109 98 11/11/18 15:00 18 11/11/18 13:40 71 144/82 11/11/18 12:30 73 11/11/18 12:20 97.7 F 58 L 14 140/82 97 - Physical Examination General: No Apparent Distress HEENT: Positive: PERRL, Normocephaly, Mucus Membranes Moist Neck: Positive: neck supple, trachea midline Cardiac: Positive: Reg Rate and Rhythm Lungs: Positive: clear to auscultation Neuro: Positive: Grossly Intact Abdomen: Positive: Tender (epigastric tenderness) Skin: Negative: Rash Musculoskeletal: No Pain Extremities: Absent: edema - Labs and Meds Cardiac Enzymes 11/12/18 Range/Units 05:47 CK-MB (CK-2) 2.5 (0.0-4.0) ng/mL Coagulation 11/12/18 Range/Units 05:47 PT 14.9 (12.2-14.9) Sec. INR 1.20 H (0.87-1.13) CBC 11/12/18 Range/Units 05:47 WBC 17.8 H (4.5-11.0) K/mm3 RBC 5.24 H (3.65-5.03) M/mm3 Hgb 16.2 H (10.1-14.3) gm/dl Hct 47.8 H (30.3-42.9) % Plt Count 284 (140-440) K/mm3 Lymph # 2.6 (1.2-5.4) K/mm3 [place] # 1.3 H (0.0-0.8) K/mm3 Eos # 0.0 (0.0-0.4) K/mm3 Baso # 0.0 (0.0-0.1) K/mm3 Comprehensive Metabolic Panel 11/12/18 Range/Units 05:47 Sodium 136 L (137-145) mmol/L Potassium 3.2 L (3.6-5.0) mmol/L Chloride 97.3 L (98-107) mmol/L Carbon Dioxide 25 (22-30) mmol/L BUN 14 (7-17) mg/dL Creatinine 0.8 (0.7-1.2) mg/dL Glucose 85 (65-100) mg/dL Calcium 8.9 (8.4-10.2) mg/dL - Imaging and Cardiology EKG: report reviewed, image reviewed Echo: report reviewed (moderate lv dsyfunction ef 35-40%) Cardiac cath: report reviewed (normal coronaries and ef 40%) - Telemetry EKG Rhythm: Sinus Rhythm - EKG Sinus rhythms and dysrhythmias: sinus rhythm Repolarization changes or abnormalities: ST or T wave suggestive of ischemia
[2018-11-12] MEDS ORDERED: KCL 10MEQ/100ML 10 MEQ/100 ML BAG IV SCH (09:30)
[2018-11-12] MEDS ORDERED: BABY ASPIRIN PO SCH (10:00)
[2018-11-12] MEDS ORDERED: ASPIRIN PO SCH (10:00)
[2018-11-12] MEDS: PERCOCET 5/325 PO PRN ×2 (11:19→22:17)
[2018-11-12] MEDS: LOPRESSOR PO SCH ×2 (11:20→22:16)
[2018-11-12] MEDS: SODIUM CHLORIDE FLUSH SYRINGE 10 ML IV SCH ×2 (11:21→22:18)
[2018-11-12] MEDS: COZAAR PO SCH (11:21)
[2018-11-12] MEDS: HABITROL TD SCH (11:21)
--- NOTE | 2018-11-12 18:51 | Progress Note ---
Assessment and Plan Assessment and plan: Patient is 43-year-old -[place]ish woman with a history of chronic abd pains after Fibroids surgery leading to percocet addition then current heroin abuse (nasal inhalation) and tobacco abuse who presents to [facility] ED with complaints of nausea, vomiting, diarrhea, abdominal pain and chest pain for the past 2-3 days. * pCXR/Abd XRay Chest one view: Heart size is normal. The lungs are clear. Two- view abdomen: Gas is scattered throughout the abdomen in a nonobstructive fashion. Negative for free air, constipation or suspicious calcification. * CT abd/pelvis with contrast IMPRESSION: 1. Fluid deep within the pelvis along the right lateral aspect of the cervix of uncertain significance. This may lie within the vagina. Clinical correlation is recommended. 2. Fatty liver. 3. Negative for abnormality at the upper abdomen. Acute Chest Pain and abnormal EKG c/w NSTEMI type 2 -Initiate chest pain protocol -Continuous telemetry monitoring -Continue supportive care -Pain mgmt -Echo reviewed -Troponin elevated -Start ASA and Statin -treated with weight based Lovenox -Lipid panel reviewed -Cardiology Consulted, input noted, LHC showed normal coronaries Non-ischemic cardiomyopathy -medical management Acute systolic and diasatolic dysfunction, poa -medical management Dyslipidemia, new onset LDL 115 -start statin Acute Gastroenteritis most likely illegal drug related -Supportive Care -Hydrate with IVF -CT Abd/Pelvis reviewed Hypertension, uncontrolled -stop NSS ivf -Continue to monitor BP -Denies hx of HTN -IV antihypertensive when necessary Hypokalemia -mild -Repleted -Continue to monitor electrolytes, replete prn Tobacco abuse -Current every day smoker -Counseled for cessation -Nicotine patch when necessary Polysubstance abuse, Heroin abuse -Counseling done -UDS collected, +opiates, BZD and cocaine -Ativan prn for withdrawals Leukocytosis, worsening, -WBC 15.5==>17.8, pelvic/cervical fluid, start empiric abx for PID, IV ancef and oral doxycycline -Consulted ID -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 Follow-up on current diagnosis AMI type 2, n/v resolving. No overnight events reported to me. Patient denies nausea/vomiting or severe headaches. Imaging, nursing note, chart, labs and old chart reviewed. Discussed with patient. Hospitalist Physical - Physical exam Narrative exam: Gen: WDWN, NAD, Awake, Alert, Orientated x 3 HEENT: NCAT, EOMI, PERRL, OP Clear Neck: supple, no adenopathy, no thyromegaly, no JVD CVS/Heart: RRR, normal S1S2, pulses present bilaterally Chest/Lungs: CTA B, Symmetrical chest expansion, good air entry bilaterally GI/Abdomen: soft, nondistended, diffuse tender, good bowel sounds, no guarding or rebound /Bladder: + suprapubic tenderness, no CVA or paraspinal tenderness Extermity/Skin: no c/c/e, no obvious rash MSK: FROM x 4 Neuro: CN 2-12 grossly intact, no new focal deficits Psych: calm - Constitutional Vitals: Temp Pulse Resp BP Pulse Ox 98.9 F 60 18 153/99 98 11/12/18 03:54 11/12/18 16:00 11/12/18 16:00 11/12/18 16:00 11/12/18 16:00 General appearance: Present: no acute distress Results - Labs CBC & Chem 7: 11/12/18 05:47 11/12/18 05:47 Labs: Laboratory Last Values WBC 17.8 K/mm3 (4.5-11.0) H 11/12/18 05:47 RBC 5.24 M/mm3 (3.65-5.03) H 11/12/18 05:47 Hgb 16.2 gm/dl (10.1-14.3) H 11/12/18 05:47 Hct 47.8 % (30.3-42.9) H 11/12/18 05:47 MCV 91 fl (79-97) 11/12/18 05:47 MCH 31 pg (28-32) 11/12/18 05:47 MCHC 34 % (30-34) 11/12/18 05:47 RDW 13.0 % (13.2-15.2) L 11/12/18 05:47 Plt Count 284 K/mm3 (140-440) 11/12/18 05:47 Lymph % (Auto) 14.9 % (13.4-35.0) 11/12/18 05:47 [place] % (Auto) 7.1 % (0.0-7.3) 11/12/18 05:47 Eos % (Auto) 0.0 % (0.0-4.3) 11/12/18 05:47 Baso % (Auto) 0.2 % (0.0-1.8) 11/12/18 05:47 Lymph # 2.6 K/mm3 (1.2-5.4) 11/12/18 05:47 [place] # 1.3 K/mm3 (0.0-0.8) H 11/12/18 05:47 Eos # 0.0 K/mm3 (0.0-0.4) 11/12/18 05:47 Baso # 0.0 K/mm3 (0.0-0.1) 11/12/18 05:47 Seg Neutrophils % 77.8 % (40.0-70.0) H 11/12/18 05:47 Seg Neutrophils # 13.8 K/mm3 (1.8-7.7) H 11/12/18 05:47 PT 14.9 Sec. (12.2-14.9) 11/12/18 05:47 INR 1.20 (0.87-1.13) H 11/12/18 05:47 APTT 27.6 Sec. (24.2-36.6) 11/10/18 22:46 184.44 ng/mlDDU (0-234) 11/10/18 22:46 Sodium 136 mmol/L (137-145) L 11/12/18 05:47 Potassium 3.2 mmol/L (3.6-5.0) L 11/12/18 05:47 Chloride 97.3 mmol/L (98-107) L 11/12/18 05:47 Carbon Dioxide 25 mmol/L (22-30) 11/12/18 05:47 17 mmol/L 11/12/18 05:47 BUN 14 mg/dL (7-17) 11/12/18 05:47 0.8 mg/dL (0.7-1.2) 11/12/18 05:47 Estimated GFR > 60 ml/min 11/12/18 05:47 18 % 11/12/18 05:47 Glucose 85 mg/dL (65-100) 11/12/18 05:47 Calcium 8.9 mg/dL (8.4-10.2) 11/12/18 05:47 1.00 mg/dL (0.1-1.2) 11/10/18 21:03 AST 28 units/L (5-40) 11/10/18 21:03 ALT 16 units/L (7-56) 11/10/18 21:03 77 units/L (35-129) 11/10/18 21:03 74 units/L (30-135) 11/12/18 05:47 CK-MB (CK-2) 2.5 ng/mL (0.0-4.0) 11/12/18 05:47 CK-MB (CK-2) Rel Index 3.3 (0-4) 11/12/18 05:47 0.017 ng/mL (0.00-0.029) 11/12/18 05:47 8.6 g/dL (6.3-8.2) H 11/10/18 21:03 4.6 g/dL (3.9-5) 11/10/18 21:03 1.2 % 11/10/18 21:03 Triglycerides 98 mg/dL (2-149) 11/10/18 21:03 Cholesterol 174 mg/dL (50-199) 11/10/18 21:03 115 mg/dL (50-130) 11/10/18 21:03 58 mg/dL (40-59) 11/10/18 21:03 3.00 % 11/10/18 21:03 11 units/L (13-60) L 11/10/18 21:03 HCG, Qual Negative (Negative) 11/10/18 20:55 Yellow (Yellow) 11/10/18 18:45 Clear (Clear) 11/10/18 18:45 6.0 (5.0-7.0) 11/10/18 18:45 Ur Specific [place] 1.026 (1.003-1.030) 11/10/18 18:45 30 mg/dl mg/dL (Negative) 11/10/18 18:45 Neg mg/dL (Negative) 11/10/18 18:45 20 mg/dL (Negative) 11/10/18 18:45 Neg (Negative) 11/10/18 18:45 Neg (Negative) 11/10/18 18:45 Neg (Negative) 11/10/18 18:45 2.0 mg/dL (<2.0) 11/10/18 18:45 Ur Leukocyte Esterase Neg (Negative) 11/10/18 18:45 1.0 /HPF (0.0-6.0) 11/10/18 18:45 4.0 /HPF (0.0-6.0) 11/10/18 18:45 U Epithel Cells (Auto) 4.0 /HPF (0-13.0) 11/10/18 18:45 1+ /HPF 11/10/18 18:45 Presumptive positive 11/10/18 18:45 Presumptive negative 11/10/18 18:45 Ur Barbiturates Screen Presumptive negative 11/10/18 18:45 Ur Phencyclidine Scrn Presumptive negative 11/10/18 18:45 Ur Amphetamines Screen Presumptive negative 11/10/18 18:45 U Benzodiazepines Scrn Presumptive positive 11/10/18 18:45 Presumptive positive 11/10/18 18:45 U Marijuana (THC) Screen Presumptive negative 11/10/18 18:45 Disclamer 11/10/18 18:45 Active Medications - Current Medications Current Medications: Generic Name Dose Route Start Last Admin Trade Name Freq PRN Reason Stop Dose Admin Acetaminophen 650 mg 11/11/18 02:19 Tylenol PO Q4H PRN Pain MILD(1-3)/Fever >100.5/LARSON Aspirin 325 mg 11/12/18 10:00 11/12/18 11:20 Aspirin PO 325 mg QDAY MARILEE Administration Atorvastatin Calcium 40 mg 11/11/18 22:00 11/11/18 21:05 Lipitor PO 40 mg QHS MARILEE Administration Diphenhydramine HCl 25 mg 11/12/18 00:54 Benadryl PO QHS PRN Sleep Sodium Chloride 1,000 mls @ 125 mls/hr 11/11/18 03:00 11/12/18 07:05 Nacl 0.9% 1000 Ml IV 125 mls/hr DIRECT MARILEE Administration Lorazepam 0.5 mg 11/11/18 02:58 11/12/18 02:04 Ativan IV 0.5 mg Q6H PRN Administration withdrawal, agitation Losartan Potassium 50 mg 11/12/18 10:00 11/12/18 11:21 Cozaar PO 50 mg QDAY MARILEE Administration Metoclopramide HCl 10 mg 11/11/18 02:19 11/11/18 12:36 Reglan IV 10 mg Q6H PRN Administration Nausea And Vomiting Metoprolol Tartrate 50 mg 11/11/18 12:00 11/12/18 11:20 Lopressor PO 50 mg BID MARILEE Administration Morphine Sulfate 2 mg 11/11/18 02:19 11/12/18 16:32 Morphine IV 2 mg Q4H PRN Administration Pain, Moderate (4-6) Nicotine 14 mg 11/11/18 10:00 11/12/18 11:21 Habitrol TD 14 mg QDAY MARILEE Administration Ondansetron HCl 4 mg 11/11/18 02:19 11/12/18 16:39 Zofran IV 4 mg Q6H PRN Administration Nausea And Vomiting Oxycodone/Acetaminophen 1 tab 11/11/18 02:19 11/12/18 11:19 Percocet 5/325 PO 1 tab Q6H PRN Administration Pain, Moderate (4-6) Sodium Chloride 10 ml 11/11/18 10:00 11/12/18 11:21 Sodium Chloride Flush Syringe 10 Ml IV 10 ml BID MARILEE Administration Sodium Chloride 10 ml 11/11/18 02:19 Sodium Chloride Flush Syringe 10 Ml IV PRN PRN LINE FLUSH
[2018-11-12] MEDS: DILAUDID PO PRN (20:07)
[2018-11-12] MEDS ORDERED: XANAX PO SCH (22:00)
[2018-11-12] MEDS: VIBRAMYCIN PO SCH (22:16)
[2018-11-12] MEDS: ANCEF/NS 1 GM/50 ML 1 GM/50 ML BAG IV SCH (22:17)
[2018-11-13] MEDS ORDERED: APRESOLINE IV PRN (00:48)
[2018-11-13] MEDS: DILAUDID PO PRN ×2 (01:10→10:32)
[2018-11-13] MEDS: ANCEF/NS 1 GM/50 ML 1 GM/50 ML BAG IV SCH ×2 (05:55→14:46)
[2018-11-13] MEDS: PERCOCET 5/325 PO PRN ×2 (05:56→12:17)
[2018-11-13 06:30] LABS: Hematocrit 51.3 % (30.3-42.9); Hemoglobin 17.2 gm/dl (10.1-14.3); Mean Corpuscular HGB Conc 34 % (30-34); Mean Corpuscular Volume 92 fl (79-97); Platelet Count 306 K/mm3 (140-440); Red Blood Count 5.59 M/mm3 (3.65-5.03); Red Cell Distribution Width 12.9 % (13.2-15.2)
[2018-11-13 06:51] LABS: BUN/Creatinine Ratio 14; Blood Urea Nitrogen 11 mg/dL (7-17); Calcium 8.9 mg/dL (8.4-10.2); Hemolysis Index 21
[2018-11-13] MEDS: ZOFRAN IV PRN (06:51)
--- NOTE | 2018-11-13 07:29 | Progress Note ---
Assessment and Plan Assessment and plan: Patient is 43-year-old -[place] woman with a history of chronic abd pains after remote history of Fibroids leading to percocet addiction then current heroin abuse (via nasal inhalation) and tobacco dependency who presents to [facility] ED with complaints of nausea, vomiting, diarrhea, abdominal pains and chest pains for the past 2-3 days. She was found to have elevated troponins with normal renal function. UDS on admission was delayed due to non-adherence, so I had to call the nurse to obtain which was positive for opiates, Benzo and cocaine * pCXR/Abd XRay Chest one view: Heart size is normal. The lungs are clear. Two- view abdomen: Gas is scattered throughout the abdomen in a nonobstructive fashion. Negative for free air, constipation or suspicious calcification. * CT abd/pelvis with contrast IMPRESSION: 1. Fluid deep within the pelvis along the right lateral aspect of the cervix of uncertain significance. This may lie within the vagina. Clinical correlation is recommended. 2. Fatty liver. 3. Negative for abnormality at the upper abdomen. * 11/12/18 s/p LHC with normal Coronaries Leukocytosis, worsening with abdominal pains -WBC 15.5==>17.8, pelvic/cervical fluid, start empiric abx for PID, IV ancef and oral doxycycline unlikely PID, will discharge most likely reactive leukocytosis -Consulted ID -Consulted clinical microbiologist -ordered transvaginal us -Afebrile, no s/s of infection, -cxr negative, ua negative and blood ctx negative so far -held off on starting abx until WBC started to increase yesterday -the abdominal pains is difficult to evaluate as patient has chronic abd pains Acute Chest Pain and abnormal EKG c/w NSTEMI type 2 -Initiate chest pain protocol -Continuous telemetry monitoring -Continue supportive care -Pain mgmt -Echo reviewed -Troponin elevated -Start ASA and Statin -treated with weight based Lovenox -Lipid panel reviewed -Cardiology Consulted, input noted, LHC showed normal coronaries Non-ischemic cardiomyopathy -medical management Acute systolic and diasatolic dysfunction, poa -medical management Dyslipidemia, new onset LDL 115 -started statin Acute Gastroenteritis -Supportive Care -Hydrate with IVF -CT Abd/Pelvis reviewed Hypertension, uncontrolled -stop NSS ivf -Continue to monitor BP -Denies hx of HTN -IV antihypertensive when necessary Hypokalemia -mild -Replete -Continue to monitor electrolytes, replete prn Tobacco abuse -Current every day smoker -Counseled for cessation -Nicotine patch when necessary Polysubstance abuse, Heroin abuse -Counseling done -UDS collected, +opiates, BZD and cocaine -Ativan prn for withdrawals -not in active withdrawals DVT PPX -on Lovenox Disposition: continue inpatient care, evaluate the worsening leukocytosis, abnormal fluid around cervix, ?PID==>unlikely, no vaginal discharge, transvaginal u/s shows 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 Follow-up on current diagnosis AMI type 2, n/v resolving. No overnight events reported to me. Patient denies nausea/vomiting or severe headaches. Imaging, nursing note, chart, labs and old chart reviewed. Discussed with patient. Hospitalist Physical - Physical exam Narrative exam: Gen: WDWN, NAD, Awake, Alert, Orientated x 3 HEENT: NCAT, EOMI, PERRL, OP Clear Neck: supple, no adenopathy, no thyromegaly, no JVD CVS/Heart: RRR, normal S1S2, pulses present bilaterally Chest/Lungs: CTA B, Symmetrical chest expansion, good air entry bilaterally GI/Abdomen: soft, nondistended, diffuse tender, good bowel sounds, no guarding or rebound /Bladder: + suprapubic tenderness, no CVA or paraspinal tenderness Extermity/Skin: no c/c/e, no obvious rash MSK: FROM x 4 Neuro: CN 2-12 grossly intact, no new focal deficits Psych: calm - Constitutional Vitals: Temp Pulse Resp BP Pulse Ox 98.7 F 64 20 164/108 98 11/13/18 03:10 11/13/18 06:00 11/13/18 05:56 11/13/18 03:10 11/13/18 03:10 General appearance: Present: no acute distress Results - Labs CBC & Chem 7: 11/13/18 05:49 11/13/18 05:49 Labs: Laboratory Last Values WBC 16.7 K/mm3 (4.5-11.0) H 11/13/18 05:49 RBC 5.59 M/mm3 (3.65-5.03) H 11/13/18 05:49 Hgb 17.2 gm/dl (10.1-14.3) H 11/13/18 05:49 Hct 51.3 % (30.3-42.9) H 11/13/18 05:49 MCV 92 fl (79-97) 11/13/18 05:49 MCH 31 pg (28-32) 11/13/18 05:49 MCHC 34 % (30-34) 11/13/18 05:49 RDW 12.9 % (13.2-15.2) L 11/13/18 05:49 Plt Count 306 K/mm3 (140-440) 11/13/18 05:49 Lymph % (Auto) 14.9 % (13.4-35.0) 11/12/18 05:47 [place] % (Auto) 7.1 % (0.0-7.3) 11/12/18 05:47 Eos % (Auto) 0.0 % (0.0-4.3) 11/12/18 05:47 Baso % (Auto) 0.2 % (0.0-1.8) 11/12/18 05:47 Lymph # 2.6 K/mm3 (1.2-5.4) 11/12/18 05:47 [place] # 1.3 K/mm3 (0.0-0.8) H 11/12/18 05:47 Eos # 0.0 K/mm3 (0.0-0.4) 11/12/18 05:47 Baso # 0.0 K/mm3 (0.0-0.1) 11/12/18 05:47 Seg Neutrophils % 77.8 % (40.0-70.0) H 11/12/18 05:47 Seg Neutrophils # 13.8 K/mm3 (1.8-7.7) H 11/12/18 05:47 PT 14.9 Sec. (12.2-14.9) 11/12/18 05:47 INR 1.20 (0.87-1.13) H 11/12/18 05:47 APTT 27.6 Sec. (24.2-36.6) 11/10/18 22:46 184.44 ng/mlDDU (0-234) 11/10/18 22:46 Sodium 140 mmol/L (137-145) 11/13/18 05:49 Potassium 3.1 mmol/L (3.6-5.0) L 11/13/18 05:49 Chloride 101.9 mmol/L (98-107) 11/13/18 05:49 Carbon Dioxide 23 mmol/L (22-30) 11/13/18 05:49 18 mmol/L 11/13/18 05:49 BUN 11 mg/dL (7-17) 11/13/18 05:49 0.8 mg/dL (0.7-1.2) 11/13/18 05:49 Estimated GFR > 60 ml/min 11/13/18 05:49 14 % 11/13/18 05:49 Glucose 97 mg/dL (65-100) 11/13/18 05:49 Calcium 8.9 mg/dL (8.4-10.2) 11/13/18 05:49 Magnesium 1.90 mg/dL (1.7-2.3) 11/13/18 05:49 1.00 mg/dL (0.1-1.2) 11/10/18 21:03 AST 28 units/L (5-40) 11/10/18 21:03 ALT 16 units/L (7-56) 11/10/18 21:03 77 units/L (35-129) 11/10/18 21:03 74 units/L (30-135) 11/12/18 05:47 CK-MB (CK-2) 2.5 ng/mL (0.0-4.0) 11/12/18 05:47 CK-MB (CK-2) Rel Index 3.3 (0-4) 11/12/18 05:47 0.017 ng/mL (0.00-0.029) 11/12/18 05:47 8.6 g/dL (6.3-8.2) H 11/10/18 21:03 4.6 g/dL (3.9-5) 11/10/18 21:03 1.2 % 11/10/18 21:03 Triglycerides 98 mg/dL (2-149) 11/10/18 21:03 Cholesterol 174 mg/dL (50-199) 11/10/18 21:03 115 mg/dL (50-130) 11/10/18 21:03 58 mg/dL (40-59) 11/10/18 21:03 3.00 % 11/10/18 21:03 11 units/L (13-60) L 11/10/18 21:03 HCG, Qual Negative (Negative) 11/10/18 20:55 Yellow (Yellow) 11/10/18 18:45 Clear (Clear) 11/10/18 18:45 6.0 (5.0-7.0) 11/10/18 18:45 Ur Specific [place] 1.026 (1.003-1.030) 11/10/18 18:45 30 mg/dl mg/dL (Negative) 11/10/18 18:45 Neg mg/dL (Negative) 11/10/18 18:45 20 mg/dL (Negative) 11/10/18 18:45 Neg (Negative) 11/10/18 18:45 Neg (Negative) 11/10/18 18:45 Neg (Negative) 11/10/18 18:45 2.0 mg/dL (<2.0) 11/10/18 18:45 Ur Leukocyte Esterase Neg (Negative) 11/10/18 18:45 1.0 /HPF (0.0-6.0) 11/10/18 18:45 4.0 /HPF (0.0-6.0) 11/10/18 18:45 U Epithel Cells (Auto) 4.0 /HPF (0-13.0) 11/10/18 18:45 1+ /HPF 11/10/18 18:45 Presumptive positive 11/10/18 18:45 Presumptive negative 11/10/18 18:45 Ur Barbiturates Screen Presumptive negative 11/10/18 18:45 Ur Phencyclidine Scrn Presumptive negative 11/10/18 18:45 Ur Amphetamines Screen Presumptive negative 11/10/18 18:45 U Benzodiazepines Scrn Presumptive positive 11/10/18 18:45 Presumptive positive 11/10/18 18:45 U Marijuana (THC) Screen Presumptive negative 11/10/18 18:45 Disclamer 11/10/18 18:45 Active Medications - Current Medications Current Medications: Generic Name Dose Route Start Last Admin Trade Name Freq PRN Reason Stop Dose Admin Acetaminophen 650 mg 11/11/18 02:19 Tylenol PO Q4H PRN Pain MILD(1-3)/Fever >100.5/LARSON Alprazolam 0.5 mg 11/12/18 22:00 11/12/18 22:17 Xanax PO 0.5 mg QHS MARILEE Administration Aspirin 325 mg 11/12/18 10:00 11/12/18 11:20 Aspirin PO 325 mg QDAY MARILEE Administration Atorvastatin Calcium 40 mg 11/11/18 22:00 11/12/18 22:16 Lipitor PO 40 mg QHS MARILEE Administration Diphenhydramine HCl 25 mg 11/12/18 00:54 11/13/18 01:10 Benadryl PO 25 mg QHS PRN Administration Sleep Doxycycline Hyclate 100 mg 11/12/18 22:00 11/12/18 22:16 Vibramycin PO 100 mg BID MARILEE Administration Hydralazine HCl 10 mg 11/13/18 00:48 11/13/18 01:11 Apresoline IV 10 mg Q4H PRN Administration Blood Pressure Hydromorphone HCl 1 mg 11/12/18 18:58 11/13/18 01:10 Dilaudid PO 1 mg Q4H PRN Administration Pain , Severe (7-10) Cefazolin Sodium 1 gm in 50 mls @ 100 mls/hr 11/12/18 22:00 11/13/18 05:55 Ancef/Ns 1 Gm/50 Ml IV 100 mls/hr Q8HR MARILEE Administration Protocol Losartan Potassium 50 mg 11/12/18 10:00 11/12/18 11:21 Cozaar PO 50 mg QDAY MARILEE Administration Metoclopramide HCl 10 mg 11/11/18 02:19 11/11/18 12:36 Reglan IV 10 mg Q6H PRN Administration Nausea And Vomiting Metoprolol Tartrate 50 mg 11/11/18 12:00 11/12/18 22:16 Lopressor PO 50 mg BID MARILEE Administration Nicotine 14 mg 11/11/18 10:00 11/12/18 11:21 Habitrol TD 14 mg QDAY MARILEE Administration Ondansetron HCl 4 mg 11/11/18 02:19 11/13/18 06:51 Zofran IV 4 mg Q6H PRN Administration Nausea And Vomiting Oxycodone/Acetaminophen 1 tab 11/11/18 02:19 11/13/18 05:56 Percocet 5/325 PO 1 tab Q6H PRN Administration Pain, Moderate (4-6) Sodium Chloride 10 ml 11/11/18 10:00 11/12/18 22:18 Sodium Chloride Flush Syringe 10 Ml IV 10 ml BID MARILEE Administration Sodium Chloride 10 ml 11/11/18 02:19 Sodium Chloride Flush Syringe 10 Ml IV PRN PRN LINE FLUSH
[2018-11-13] MEDS ORDERED: K-DUR PO ONE ×2 (09:00→14:00)
[2018-11-13] MEDS ORDERED: NORVASC PO SCH (10:00)
--- NOTE | 2018-11-13 10:29 | Progress Note ---
Assessment and Plan S/p LHC yesterday which revealed normal coronaries. tte reviewed - EF 35%. Cont lopressor and losartan. Optimize BPs - initiate norvasc. Replete potassium. Currently stable cardiac status. Cessation of illicit drug use and tobacco use strongly encouraged. Pt may discharge from cardiology standpoint. Recommend follow up in our office with Dr. Meneses within 1-2 weeks of hospital discharge ([phone]). The patient has been seen in conjunction with Dr. Meneses who agrees with the assessment and plan of care. - Patient Problems (1) NSTEMI (non-ST elevated myocardial infarction) Current Visit: Yes Status: Acute Plan to address problem: type II (2) Chest pain Current Visit: Yes Status: Resolved (3) Nonischemic cardiomyopathy Current Visit: Yes Status: Chronic (4) Normal coronary arteries Current Visit: Yes Status: Chronic (5) Epigastric pain Current Visit: Yes Status: Acute (6) Nausea & vomiting Current Visit: Yes Status: Acute (7) Heroin abuse Current Visit: Yes Status: Chronic (8) Tobacco use Current Visit: Yes Status: Chronic (9) Hypokalemia Current Visit: Yes Status: Acute (10) HTN (hypertension) Current Visit: Yes Status: Acute Subjective Date of service: 11/13/18 Principal diagnosis: nstemi Interval history: pt resting in bed, c/o abdominal soreness r/t recent nausea and vomiting, no c urrent cardiac complaints. in SR on tele. Objective Last Vital Signs Temp 98.7 F 11/13/18 03:10 Pulse 64 11/13/18 06:00 Resp 20 11/13/18 05:56 BP 164/108 11/13/18 03:10 Pulse Ox 98 11/13/18 03:10 - Physical Examination General: No Apparent Distress HEENT: Positive: PERRL, Normocephaly, Mucus Membranes Moist Neck: Positive: neck supple, trachea midline Cardiac: Positive: Reg Rate and Rhythm, S1/S2 Lungs: Positive: Decreased Breath Sounds Neuro: Positive: Grossly Intact Abdomen: Positive: Tender (epigastric tenderness) Skin: Negative: Rash Musculoskeletal: No Pain Extremities: Absent: edema - Labs and Meds CBC 11/13/18 Range/Units 05:49 WBC 16.7 H (4.5-11.0) K/mm3 RBC 5.59 H (3.65-5.03) M/mm3 Hgb 17.2 H (10.1-14.3) gm/dl Hct 51.3 H (30.3-42.9) % Plt Count 306 (140-440) K/mm3 Comprehensive Metabolic Panel 11/13/18 Range/Units 05:49 Sodium 140 (137-145) mmol/L Potassium 3.1 L (3.6-5.0) mmol/L Chloride 101.9 (98-107) mmol/L Carbon Dioxide 23 (22-30) mmol/L BUN 11 (7-17) mg/dL Creatinine 0.8 (0.7-1.2) mg/dL Glucose 97 (65-100) mg/dL Calcium 8.9 (8.4-10.2) mg/dL - Imaging and Cardiology EKG: report reviewed, image reviewed Echo: report reviewed (moderate lv dsyfunction ef 35-40%) Cardiac cath: report reviewed (normal coronaries and ef 40%) - EKG Sinus rhythms and dysrhythmias: sinus rhythm Repolarization changes or abnormalities: ST or T wave suggestive of ischemia
[2018-11-13] MEDS: COZAAR PO SCH (10:35)
[2018-11-13] MEDS: VIBRAMYCIN PO SCH (10:35)
[2018-11-13] MEDS: SODIUM CHLORIDE FLUSH SYRINGE 10 ML IV SCH (10:36)
[2018-11-13] MEDS: HABITROL TD SCH (10:38)
--- NOTE | 2018-11-13 11:44 | Consultation ---
History of Present Illness - Reason for Consult Consult date: 11/13/18 worsening leukocytosis Requesting physician: JUNAID YANG - History of Present Illness This patient is a 43-year-old female with a past medical history of heroin abuse(nasal inhalation) and tobacco abuse that presents to [facility] ED on 11/11/18 with complaints of nausea, vomiting, diarrhea , abdominal pain and chest pain for the past 2-3 days. patient stated that on Saturday she started feeling bloated and was passing an excessive amount of flatulence. On Saturday she started experiencing non-radiating left-sided substernal chest pain,and abdominal pain with accompanying nausea, vomiting and diarrhea. On admission WBC 15.5, now worsening. Creatinine 0.8, Temperature 98 HR 64, BP 177/107. UA w/o pyuria. Opiate and cocaine screen positive. CXR no consolidation.. Abdomen and Pelvis CT show fluid deep within the pelvis along the right lateral aspect of the cervix of uncertain significance. Patient states that she has been using heroin ( nasal inhalation only) for the past 7 months as a result of chronic abdominal pain since the of her daugh ter 2 years ago. She reports that she has a history of fibroids. She denies cocaine or benzo use. + Tobacco abuse. She states that she was tested for HIV 2 months ago but has agreed to repeat testing. General: no fever, chills, nightsweats, unintentional weight change, or change in appetite Cutaneous: no rash, pruritus Head: no headaches or injury Eyes: no changes in vision, eye pain, double vision Ears: no ear pain, ear discharge, ringing or hearing loss Nose: no nose bleeding, stuffiness Mouth & throat: no bleeding gums, no horseness, no dental problems, or swollen glands Neck: no pain, node enlargement/lumps, tyroid enlargement or tenderness Respiratory: + dry cough, no wheezing, sputum, hemoptysis, pleuritic chest pain Cardiovascular: no chest pain, leg edema, cyanosis, BENEDICT, orthopnea Musculoskeletal: no decreased joint motion, bone or joint pain, joint swelling, + muscle aches Gastrointestinal: + nausea, vomiting, No hematemesis, diarrhea, constipation, melena, bright red blood in stools, fecal incontinence, jaundice Genitourinary/Reproductive: no frequent urination, no dysuria, hematuria, incontinence Neurogical: no seizures, no headaches, no weakness, no paresthesias, no loss of speech or vision; no memory loss, no vertigo, no tremors, no numbness Psychiatric: stable mood; no excessive anxiety, sadness or moodiness Past History Past Medical History: No medical history Past Surgical History: No surgical history Social history: smoking (smokes 1-2 cigars per day), other (heroine inhalation ). denies: alcohol abuse Family history: no significant family history Medications and Allergies Allergies Allergy/AdvReac Type Severity Reaction Status Date / Time No Known Allergies Allergy Unverified 11/10/18 19:45 Home Medications Medication Instructions Recorded Confirmed Last Taken Type No Known Home Medications [No 11/11/18 11/11/18 Unknown History Reported Home Medications] Active Meds: Active Medications Acetaminophen (Tylenol) 650 mg PO Q4H PRN PRN Reason: Pain MILD(1-3)/Fever >100.5/[place] Alprazolam (Xanax) 0.5 mg PO QHS [facility] Last Admin: 11/12/18 22:17 Dose: 0.5 mg Documented by: Amlodipine Besylate (Norvasc) 10 mg PO QDAY [facility] Last Admin: 11/13/18 10:36 Dose: 10 mg Documented by: Atorvastatin Calcium (Lipitor) 40 mg PO QHS [facility] Last Admin: 11/12/18 22:16 Dose: 40 mg Documented by: Diphenhydramine HCl (Benadryl) 25 mg PO QHS PRN PRN Reason: Sleep Last Admin: 11/13/18 01:10 Dose: 25 mg Documented by: Doxycycline Hyclate (Vibramycin) 100 mg PO BID [facility] Last Admin: 11/13/18 10:35 Dose: 100 mg Documented by: Hydralazine HCl (Apresoline) 10 mg IV Q4H PRN PRN Reason: Blood Pressure Last Admin: 11/13/18 01:11 Dose: 10 mg Documented by: Hydromorphone HCl (Dilaudid) 1 mg PO Q4H PRN PRN Reason: Pain , Severe (7-10) Last Admin: 11/13/18 10:32 Dose: 1 mg Documented by: Cefazolin Sodium (Ancef/Ns 1 Gm/50 Ml) 1 gm in 50 mls @ 100 mls/hr IV Q8HR [facility]; Protocol Last Admin: 11/13/18 05:55 Dose: 100 mls/hr Documented by: Losartan Potassium (Cozaar) 50 mg PO QDAY [facility] Last Admin: 11/13/18 10:35 Dose: 50 mg Documented by: Metoclopramide HCl (Reglan) 10 mg IV Q6H PRN PRN Reason: Nausea And Vomiting Last Admin: 11/11/18 12:36 Dose: 10 mg Documented by: Metoprolol Tartrate (Lopressor) 50 mg PO BID [facility] Nicotine (Habitrol) 14 mg TD QDAY [facility] Last Admin: 11/13/18 10:38 Dose: Not Given Documented by: Ondansetron HCl (Zofran) 4 mg IV Q6H PRN PRN Reason: Nausea And Vomiting Last Admin: 11/13/18 06:51 Dose: 4 mg Documented by: Oxycodone/Acetaminophen (Percocet 5/325) 1 tab PO Q6H PRN PRN Reason: Pain, Moderate (4-6) Last Admin: 11/13/18 05:56 Dose: 1 tab Documented by: Potassium Chloride (K-Dur) 40 meq PO ONCE ONE Stop: 11/13/18 14:01 Sodium Chloride (Sodium Chloride Flush Syringe 10 Ml) 10 ml IV BID [facility] Last Admin: 11/13/18 10:36 Dose: 10 ml Documented by: Sodium Chloride (Sodium Chloride Flush Syringe 10 Ml) 10 ml IV PRN PRN PRN Reason: LINE FLUSH Physical Examination - Physical Exam Narrative exam: Constitutional: Alert, cooperative. Generalized weakness Head, Ears, Nose: Normocephalic, atraumatic. External ears, nose normal Eyes: Conjunctivae/corneas clear. No icterus. No ptosis. Neck: Supple, no meningeal signs Oral: dentition fair. Thrush + on buccal mucosa and oropharynx. Cardiovascular: S1, S2 normal. Respiratory: Good air entry, clear to auscultation bilaterally GI: Soft, with tenderness. bowel sounds normal. No peritoneal signs Musculoskeletal: No pedal edema, no cyanosis. Skin: No rash or abscess. Hem/Lymphatic: No palpable cervical or supraclavicular nodes. No lymphangitis Psych: Mood ok. Affect normal Neurological: Awake, alert, oriented. - Constitutional Vitals: Vital Signs Temp Pulse Resp BP Pulse Ox 98.4 F 60 16 162/105 96 11/13/18 10:07 11/13/18 10:36 11/13/18 10:07 11/13/18 10:36 11/13/18 10:07 Temperature -Last 24 Hours Temperature 98.4 F Temperature 98.7 F Temperature 99.5 F Temperature 98.3 F Results - Labs CBC & Chem 7: 11/13/18 05:49 11/13/18 05:49 Labs: Abnormal lab results 11/13/18 11/13/18 Range/Units 05:49 05:49 WBC 16.7 H (4.5-11.0) K/mm3 RBC 5.59 H (3.65-5.03) M/mm3 Hgb 17.2 H (10.1-14.3) gm/dl Hct 51.3 H (30.3-42.9) % RDW 12.9 L (13.2-15.2) % Potassium 3.1 L (3.6-5.0) mmol/L - Imaging and Cardiology Chest x-ray: report reviewed (no consolidaton) CT scan - abdomen: report reviewed ( fluid deep within the pelvis along the right lateral aspect of the cervix of uncertain significance.) Assessment and Plan Cultures: 11/11/18 Blood no growth A/P: This patient is a 43-year-old female with a past medical history of heroin abuse(nasal inhalation) and tobacco abuse that presents to [facility] ED on 11/11/18 with complaints of nausea, vomiting, diarrhea , abdominal pain and chest pain for the past 2-3 days. Admitted with : 1. Worsening Leukocytosis: with abdominal pain. Etiology not clear.Blood cultures no growth. UA without pyuria. CXR no consolidation. Abdomen and pelvic CT showed fluid deep within pelvis. Currently being treated with Cefazolin and Doxycycline. 2. Abdominal Pain: CT abdomen and pelvis show fluid within pelvis along the right lateral aspect of the cervix of uncertain. significance. Clinical correlation required. Transvaginal US pending. Recommend SOFTWARE TEAM LEADER consult. . 3. Polysubstance abuse: Opiate, Cocaine and Benzo screen positive. Recommend out- patient substance abuse management 4. Tobacco abuse: recommend smoking cessation. 5. Oral Candidiasis: on buccal mucosa and oropharynx. Will start Fluconazole. Recommendations: -Discontinue Cefazolin -Continue Doxycycline -Start Ceftriaxone 2gm IV every 24 hours -Start Fluconazole 200mg PO every 24 hours -RPR, GC/Chlamydia and Rapid HIV ordered ( patient consented) -follow-up transvaginal US - report pending -recommend SOFTWARE TEAM LEADER consult -Monitor WBC [facility] M: [phone] O:[phone]
--- NOTE | 2018-11-13 12:52 | Ultrasound Report ---
Pelvic Ultrasound HISTORY: PELVIC INFECTION. Acute lower pelvic pain TECHNIQUE: Grayscale and color Doppler imaging performed. COMPARISON: CT abdomen/pelvis from 2 days prior FINDINGS: Uterus measures 8.7 x 4.7 x 2.2 cm with endometrial echo complex measuring 6 mm. There are at least 2 uterine body masses the largest of which measures 2.2 cm in the fundal region and likely r epresents fibroid disease. Both ovaries are normal in size and appearance. There is a small amount of pelvic free fluid. IMPRESSION: 1. Uterine fibroids. 2. Small volume pelvic free fluid, likely physiologic in a woman of this age. Signer Name: Kaden Barakat MD Signed: 11/13/2018 12:47 PM Workstation Name: [id number]
[2018-11-13] MEDS ORDERED: ROCEPHIN/NS 2 GM/100 ML 2 GM/100 ML BAG IV SCH (16:00)
[2018-11-13] MEDS ORDERED: DIFLUCAN PO SCH (16:00)
--- NOTE | 2018-11-13 17:17 | Discharge Summary ---
Providers - Providers Date of Admission: 11/11/18 02:19 Date of discharge: 11/13/18 Attending physician: JUNAID YANG 11/11/18 Consult to Cardiac Rehabilitation [CONS] Routine Reason For Exam: Phase I 11/11/18 02:45 Consult to Cardiology [CONS] Routine Consulting Provider: LANE MILLS Reason For Exam: nstemi 11/12/18 09:21 Consult to Cardiac Rehabilitation [CONS] Routine Reason For Exam: Cardiac Rehab Evaluation 11/12/18 19:00 Consult to Physician [CONS] Routine Comment: Consulting Provider: ANYI SCHILLING Physician Instructions: Reason For Exam: Leukocytosis, worsening 11/12/18 19:01 Consult to Physician [CONS] Routine Comment: Consulting Provider: DOYLE HAM Physician Instructions: Reason For Exam: Fluid w/in the pelvis area, ?vagina 11/13/18 16:58 Consult to Mental Health [CONS] Urgent Reason For Exam: Heroin detox options Place consult to:: environmental health specialist accounting policy consultant Notified:: awaiting call back Comment:: fax to [phone] Primary care physician: INSTRUCTOR [employer] Hospitalization Condition: Stable Hospital course: Patient is 43-year-old -[place] woman with a history of chronic abd pains after remote history of Fibroids leading to percocet addiction then current heroin abuse (via nasal inhalation) and tobacco dependency who presents [facility] with complaints of nausea, vomiting, diarrhea, abdominal pains and chest pains for the past 2-3 days. She was found to have elevated troponins with normal renal function. UDS on admission was delayed due to non-adherence, so I had to call the nurse to obtain which was positive for opiates, Benzo and cocaine. Patient claims she never took cocaine even after confronted with the positive cocaine test results, "it must've been in the heroin". She is very convincing and manipulative; one minute she wants to detox but she demands IV narcotics and IV morphine IV is not strong enough for her. She wants a cocktail all together of Xanax, benadryl and promethazine at night. So, I do not believe she truly wants to detox. Mental health came and gave her referral. * pCXR/Abd XRay Chest one view: Heart size is normal. The lungs are clear. Two- view abdomen: Gas is scattered throughout the abdomen in a nonobstructive fashion. Negative for free air, constipation or suspicious calcification. * CT abd/pelvis with contrast IMPRESSION: 1. Fluid deep within the pelvis along the right lateral aspect of the cervix of uncertain significance. This may lie within the vagina. Clinical correlation is recommended. 2. Fatty liver. 3. Negative for abnormality at the upper abdomen. * 11/12/18 s/p LHC with normal Coronaries * transvaginal u/s shows fibroids * clearance center manager hasn't seen, can follow up outpatient * ID evaluation done, high risk, HIV negative, will empiric treat * WBC improved with addition of abx * blood pressure meds adjusted * 2D Echo conclusions: mild MR, mild TR, trace AR, global left ventricular systolic function is moderately decreased with EF 35-40%, right ventricular chamber size and systolic function normal limits. * repleted potassium Acute Chest Pain and abnormal EKG c/w NSTEMI type 2 -Initiate chest pain protocol -Continuous telemetry monitoring -Continue supportive care -Pain mgmt -Echo reviewed -Troponin elevated -Start ASA and Statin -treated with weight based Lovenox -Lipid panel reviewed -Cardiology Consulted, input noted, LHC showed normal coronaries Leukocytosis, worsening with abdominal pains -WBC 15.5==>17.8, pelvic/cervical fluid, start empiric abx for PID, IV ancef and oral doxycycline unlikely PID but GC not sent most likely reactive leukocytosis -Consulted ID -Consulted recording studio internship -ordered transvaginal us -Afebrile, no s/s of infection, -cxr negative, ua negative and blood ctx negative so far -held off on starting abx until WBC started to increase yesterday -the abdominal pains is difficult to evaluate as patient has chronic abd pains home on ceftin, doxycycline Non-ischemic cardiomyopathy -medical management Acute systolic and diasatolic dysfunction, poa -medical management Dyslipidemia, new onset LDL 115 -started statin Acute Gastroenteritis -Supportive Care -Hydrate with IVF -CT Abd/Pelvis reviewed Oral thrush -diflucan HIV negative Hypertension, uncontrolled -stop NSS ivf -Continue to monitor BP -Denies hx of HTN -IV antihypertensive when necessary Hypokalemia -mild -Replete -Continue to monitor electrolytes, replete prn Tobacco abuse -Current every day smoker -Counseled for cessation -Nicotine patch when necessary Polysubstance abuse, Heroin abuse -Counseling done -UDS collected, +opiates, BZD and cocaine -Ativan prn for withdrawals -not in active withdrawals, but soon will be, she can go voluntarily to [facility] for Heroin DVT PPX -on Lovenox Disposition: discharge home, she can go to [place] voluntarily for Detox, she tells me that she went but they would not take her because she did not have a referral so I consulted our Mental health to facility referral to DETOX center Disposition: [id number] PSY HOSP/PSY UNIT Time spent for discharge: 36 minutes Core Measure Documentation - Palliative Care Palliative Care/ Comfort Measures: Not Applicable - Core Measures Any of the following diagnoses?: none - VTE Discharge Requirements Deep Vein Thrombosis/Pulmonary Embolism Present on Admission: No Has pt received <5 days of overlap therapy or INR<2.0: No Anticoagulant overlap therapy prescribed at discharge: No Contraindication No Overlap Therapy order at DC: Not Indicated Exam - Physical Exam Narrative exam: Gen: WDWN, NAD, Awake, Alert, Orientated x 3 HEENT: NCAT, EOMI, PERRL, OP Clear Neck: supple, no adenopathy, no thyromegaly, no JVD CVS/Heart: RRR, normal S1S2, pulses present bilaterally Chest/Lungs: CTA B, Symmetrical chest expansion, good air entry bilaterally GI/Abdomen: soft, nondistended, diffuse tender, good bowel sounds, no guarding or rebound /Bladder: + suprapubic tenderness, no CVA or paraspinal tenderness Extermity/Skin: no c/c/e, no obvious rash MSK: FROM x 4 Neuro: CN 2-12 grossly intact, no new focal deficits Psych: calm - Constitutional Vitals: Temp Pulse Resp BP Pulse Ox 98.4 F 60 18 162/105 96 11/13/18 10:07 11/13/18 10:36 11/13/18 11:00 11/13/18 10:36 11/13/18 10:07 Plan Activity: other (no strenous activity unless cleared by PCP) Diet: regular Follow up with: LYNDSEY GONZALEZ MD [Primary Care Provider] - 3-5 Days DOYLE HAM MD [Staff Physician] - 7 Days ANYI SCHILLING MD [Staff Physician] - [address] MILLS MD [Staff Physician] - 7 Days Prescriptions: diphenhydrAMINE [Benadryl CAP] 25 mg PO QHS PRN #30 capsule PRN Reason: Sleep AtorvaSTATin [Lipitor] 40 mg PO QHS #30 tablet ALPRAZolam [Xanax TAB] 0.5 mg PO QHS #15 tablet cefUROXime [Ceftin] 500 mg PO Q12H #14 tablet Losartan [Cozaar] 50 mg PO QDAY #30 tablet Fluconazole [Diflucan TAB] 200 mg PO QDAY #7 tablet Nicotine [Habitrol] 14 mg TD QDAY #15 patch Metoprolol [Lopressor TAB] 50 mg PO BID #60 tablet amLODIPine [Norvasc] 10 mg PO QDAY #30 tablet oxyCODONE /ACETAMINOPHEN [Percocet 5/325 mg] 1 tab PO Q6H PRN #15 tablet PRN Reason: Pain , Severe (7-10) DOXYCYCLINE Hyclate [Vibramycin CAP] 100 mg PO BID #14 capsule
[2018-11-13] MEDS ORDERED: DILAUDID IV ONE (17:46)
[2018-11-13 20:30] VITALS: BP 155/109
[2018-11-13] MEDS ORDERED: LOPRESSOR PO SCH (22:00)
[2018-11-13] MEDS ORDERED: DILAUDID IV PRN (22:47)
== END 2018-11-13 21:20 | disposition home or self-care (01) | DRG 280 ==
LOC: ED 19:05 → 4A 11-11 02:19
PROVIDERS: ADMIT Internal Medicine; ATTEND Internal Medicine
PROC: 4A023N7 Measurement of Cardiac Sampling and Pressure, Left Heart, Percutaneous Approach (ICD-10-PCS; principal; 2018-11-12)
PROC: B2111ZZ Fluoroscopy of Multiple Coronary Arteries using Low Osmolar Contrast (ICD-10-PCS; 2018-11-12)
PROC: B2151ZZ Fluoroscopy of Left Heart using Low Osmolar Contrast (ICD-10-PCS; 2018-11-12)
DX: I21.A1 Myocardial infarction type 2 (principal); I50.41 Acute combined systolic (congestive) and diastolic (congestive) heart failure; I42.8 Other cardiomyopathies; K52.9 Noninfective gastroenteritis and colitis, unspecified; E87.6 Hypokalemia; F11.10 Opioid abuse, uncomplicated; I11.0 Hypertensive heart disease with heart failure; B37.0 Candidal stomatitis; F17.200 Nicotine dependence, unspecified, uncomplicated; D72.829 Elevated white blood cell count, unspecified; E78.5 Hyperlipidemia, unspecified; F19.10 Other psychoactive substance abuse, uncomplicated; Z71.6 Tobacco abuse counseling
CPT/HCPCS: 36415; 74022; 74177; 76830; 80048; 80053; 80061; 80307; 81001; 82550; 82553; 83690; 83735; 84484; 84703; 85025; 85027; 85379; 85610; 85730; 86592; 87040; 87806; 93005; 93010; 93306; 93458; 96374; 96375; 96376; 99406; G0378; A9270-GY; C1894; J0360; J0690; J0696; J1170; J1200; J1644; J1650; J2060; J2250; J2270; J2405; J2765; J3010; J3480; J7030; J7040; Q9967